=== PATIENT | male | born 1955 | race Caucasian/White ===

== ENCOUNTER → 2023-08-14 15:38 | Outpatient (REF) | payer MEDICARE, SELFPAY | LOC: HWRAD 15:38 | PROVIDERS: ATTENDING PHYSICIAN Internal Medicine Critical Care Medicine; FAMILY PHYSICIAN Family Medicine | DX: R91.1 Solitary pulmonary nodule (principal) | CPT/HCPCS: 71250 ==

== ENCOUNTER → 2023-11-27 15:25 | Outpatient (REF) | payer MEDICARE, SELFPAY | LOC: RAD 15:25 | PROVIDERS: ATTENDING PHYSICIAN Internal Medicine Critical Care Medicine; FAMILY PHYSICIAN Family Medicine | DX: Z86.718 Personal history of other venous thrombosis and embolism (principal); I26.99 Other pulmonary embolism without acute cor pulmonale | CPT/HCPCS: 93970 ==

== ENCOUNTER → 2023-12-04 10:51 | Outpatient (REF) | payer MEDICARE, SELFPAY | LOC: RAD 10:51 | PROVIDERS: ATTENDING PHYSICIAN Internal Medicine Critical Care Medicine; FAMILY PHYSICIAN Family Medicine | DX: R91.1 Solitary pulmonary nodule (principal) | CPT/HCPCS: 71250 ==

== ENCOUNTER 2025-01-12 21:35 | Inpatient (IN) | payer MEDICARE, SELFPAY ==
[2025-01-12] VITALS (11 sets, daily range): BP systolic 139–181; BP diastolic 84–126; BMI 20.4
[2025-01-12] MEDS: MORPHINE SULFATE 4 MG IV (18:41)
[2025-01-12 18:52] LABS: Hematocrit 51.5 % (39.0-52.0); Hemoglobin 17.5 g/dL (13.0-18.0); Mean Corp Hgb Conc. 34.0 g/dL (33.0-37.0); Mean Corpuscular Volume 93.1 fL (80.0-94.0); Nucleated Red Blood Cells % 0 % (-); Platelet Count 154 10^3/uL (130-400); Red Cell Dist. Width 15.5 % (11.5-14.5)
[2025-01-12 19:01] LABS: APTT 23.8 Sec (23.4-35.0); INR 0.89; PT 12.6 Sec (11.4-14.6)
[2025-01-12 19:11] LABS: ALT (SGPT) 70 U/L (0-50); AST (SGOT) 61 U/L (17-59); Albumin 4.9 g/dl (3.5-5.0); Alkaline Phosphatase 99 U/L (38-126); Blood Urea Nitrogen 11 mg/dl (9-20); Calcium 9.1 mg/dl (8.4-10.2); Carbon Dioxide 27 mmol/L (22-30); Chloride 102 mmol/L (98-107); Glucose 104 mg/dl (70-99); Potassium 4.7 mmol/L (3.5-5.1); Sodium 140 mmol/L (135-145); Total Protein 9.2 g/dl (6.3-8.2); eGFR > 60.00
--- NOTE | 2025-01-12 19:44 | ED.GENMED ---
History of Present Illness
General
Chief Complaint: Musculo-Skeletal Complaint
Time Seen by Provider: 01/12/25 18:23
History of Present Illness
History of Present Illness:
69-year-old male with history of chronic venous insufficiency, PE and DVT, HIV presenting for right lower extremity pain and discoloration. Patient reports that he started to have right lower extremity pain yesterday, and then today noticed bluish
discoloration to the foot. Patient admits to medication noncompliance. He is supposed to be on Eliquis and HIV medications, however has not been taking them for several months. Notes that he has had chronic venous stasis ulcers in the past.
Denies chest pain or difficulty breathing. Does note decreased sensation to the foot. He does not routinely follow with any vascular doctors. Denies additional acute medical complaints
Past History
Past History
ED Past Medical History: Other (Significant PVD/vascular insufficiency) and Other (HIV. Patient has what he calls severe OCD, he has stopped his HIV medications in December 2022 as he could not handle ordering all the meds and figuring out the prices
etc.)
Social History
Tobacco: Smoker
Alcohol: Daily
Living: with roommate
Phy Exam
Physical Exam
Physical Exam:
General: Well-appearing, no clinical signs of dehydration, nontoxic and in no acute distress
HEENT: protecting airway
Neck: appears supple
CV: Normal heart rate, regular rhythm
Resp: No accessory muscle use, no increased work of breathing, lungs clear to auscultation bilaterally
Abd: No distention
Extremities: No significant swelling to the right lower extremity, however significant cyanosis at the foot and ankle, extending proximally. No palpable distal pulses. Palpable femoral pulse. Decree sensation. Slight coolness to touch in
comparison to the left
Neuro: alert, no focal neurologic deficit
: deferred
Rectal: deferred
Psych: Normal affect
Skin: Intact
Course
Orders/Labs/Results
Orders:
Orders
01/12/25 18:34
CT Abd Aorta Angio W/ Run Off Urgent
Comment:
Reason For Exam: Pulseless RLE
Morphine Sulfate 4 mg IV NOW STA
01/12/25 18:42
Complete Blood Count/With Diff Urgent
Comprehensive Metabolic Panel Urgent
PTT Urgent
Prothrombin Time Urgent
01/12/25 19:23
Fentanyl Citrate/Pf [Sublimaze] 25 mcg IV [id number] PRN
HYDROmorphone [Dilaudid] 0.25 mg IV [id number] PRN
HYDROmorphone [Dilaudid] 0.5 mg IV [id number] PRN
Ondansetron Injectable [Zofran] 4 mg IV PACU-ONCEPRN PRN
Prochlorperazine [Compazine] 5 mg IV PACU-ONCEPRN PRN
Notify MD As Directed
Notify physician if: for SDS patients with known or suspected sleep obstructive sleep apnea, monitor in the
PACU.
Notify MD for any apneic/desaturation episodes
O2 Therapy [RESP] Urgent
Titrate/Wean O2 to maintain O2 sat greater than (%): 92
Special Instructions: -Provide supplemental oxygen to achieve O2 sat of 92% or greater.
-After 15 min, may wean O2 and discontinue if patient is able to maintain O2 sat of 92%
or greater during recovery period.
If patient is a discharge home, without oxygen therapy, notify anestheiologist if
unable to maintain O2 SAT of 92% or greater on room air for MD clearance.
01/12/25 19:30
Normosol (Mult Electrolytes) [Normosol-R/Plasmalyte-A] 1,000 ml IV PER PROTOCOL
01/12/25 19:43
Heparin 5,000 units .ROUTE .STK-MED ONE
Thrombin Topical (Bovine) [Thrombin-Jmi 20158 Unit Vial] 20,000 units .ROUTE .STK-MED ONE
01/12/25 19:51
Dexamethasone Sod Phosphate [Decadron] 20 mg .ROUTE .STK-MED ONE
Fentanyl Citrate/Pf [Sublimaze] 100 mcg .ROUTE .STK-MED ONE
Lidocaine HCl/Pf [Xylocaine-Mpf 1% Vial] 50 mg .ROUTE .STK-MED ONE
Midazolam HCl [Versed] 2 mg .ROUTE .STK-MED ONE
Ondansetron Injectable [Zofran] 4 mg .ROUTE .STK-MED ONE
Propofol [Diprivan] 20 ml .ROUTE .STK-MED
Rocuronium Eagle [Rocuronium] 50 mg .ROUTE .STK-MED ONE
01/12/25 20:10
Admit/Transfer Patient As Directed
Co-Sign Provider:
Level of Care: Inpatient admission
Assign to:: IVU
Physician / Group: Cleo
Diagnosis: Occlusion of the right superficial femoral artery
Reason for Hospitalization: arterial occlusion
Expected length of stay greater than two midnights?: Yes
ELOS- Estimated Length of Stay in days: 2
I certify the patient meets the requirements for IP care: Yes
01/12/25 20:11
PRN Pain Medication Management As Directed
May give lesser potent ordered pain med per pt: Yes
preference::
Protocol:: Medication orders for pain may be administered in a
manner that supports deferring to patient preference
when the pt is:
- Requesting an ordered lesser potent pain medication.
Least to most potent pain medications are defined
as: acetaminophen < NSAID < tramadol < opioids
(morphine, oxycodone, hydromorphone).
- Requesting a lesser dose of the same medication IF
ORDERED.
- Requesting a less intrusive route of administration
if both routes are prescribed by the provider (PO <
IV).
01/12/25 20:12
Code Status As Directed
Resuscitation Status: Full Code
Abnormal Lab Results
01/12/25
18:42
MCH 31.6 H pg
(27.0-31.0)
RDW 15.5 H %
(11.5-14.5)
MPV 10.9 H fL
(7.4-10.4)
Glucose 104 H mg/dl
(70-99)
AST 61 H U/L
(17-59)
ALT 70 H U/L
(0-50)
Total Protein 9.2 H g/dl
(6.3-8.2)
01/12/25 18:42
01/12/25 18:42
Vital Signs
Initial and Last Documented VS:
Initial Vital Signs
Temp Pulse Resp BP Pulse Ox
98.6 F 118 20 157/105 95
01/12/25 18:16 01/12/25 18:16 01/12/25 18:16 01/12/25 18:16 01/12/25 18:16
Last Documented Vital Signs
Temp Pulse Resp BP Pulse Ox
98.4 F 103 16 159/96 95
01/12/25 19:18 01/12/25 19:18 01/12/25 19:18 01/12/25 19:18 01/12/25 19:52
MDM/Problems Addressed
MDM/Problems Addressed:
69-year-old male with history of chronic venous insufficiency and medication noncompliance presenting for right lower extremity pain with discoloration. Vital signs on arrival significant for hypertension and tachycardia.
On exam, patient with grossly abnormal right lower extremity, cyanotic, no dopplerable pulses and decreased sensation. Concern for limb threatening occlusion. Call placed immediately to vascular surgery, recommending CT with runoff. Decision made
to send to CT without laboratory analysis critical concern.
19:05 -vascular surgery made aware of CT being done. Will interpreted images.
19:30 - Vascular notes they are coming in for operative repair of an SFA occlusion.
*Pulse Oximetry
SaO2: 95
Oxygen Mode of Delivery: Room air
Patient hypoxic: no
*Critical Care Note
Total Time (30-74mins, 75-104mins- exclusive of procedures): 45
comment:
The high probability of a clinically significant, sudden or life threatening deterioration of the vascular system(s) required my full and direct attention, intervention and personal management. The aggregate critical care time was [] minutes. This
time is in addition to time spent performing reported procedures but includes the following:
[x] Data Review and interpretation
[x] Patient assessment and monitoring of vital signs
[x] Documentation
[x] Medication orders and management
ED Attending Note
-
Portions of this chart may have been created with voice recognition software.� Occasional wrong word or��sound alike� substitutions may have occurred due to the inherent limitations of voice recognition software.
Discharge Plan
Departure
Patient Disposition: Admit
Date of Disposition: 01/12/25
Time of Disposition: 19:44
Presentation/result/management discussed w/ accepting MD/DO: Hospitalist
Patient with high blood pressure during this ER visit?: No
Condition: Critical
Discharge Problem:
Superficial femoral artery occlusion
Prescriptions:
No Action
Eliquis 5 mg Tablet
5 mg PO DAILY
Rx Instructions:
stopped a year ago
Trelegy Ellipta
1 inh inhalation DAILY
Rx Instructions:
He stopped all meds 1 year ago
Triumeq
1 tab PO DAILY
Rx Instructions:
stopped all meds since may
Referrals:
Ketan Iqbal MD [Family Provider, [facility]]
Interventions
Interventions:
*Risk Screen - Suicide Last Done: 01/12/25 18:16
*General Assessment Last Done: 01/12/25 18:16
*Neglect/Abuse Screening Last Done: 01/12/25 19:22
*ED- Fall Risk Assessment Last Done: 01/12/25 19:22
*ED COVID-19 Vaccine History Last Done: 01/12/25 19:22
*Nursing Disposition Last Done: 01/12/25 20:23
ED-Musculoskeletal Assessment Last Done: 01/12/25 19:29
Discharge Date and Time
Discharge Date/Time: 01/12/25 20:24
Print Language: SLOVAK
--- NOTE | 2025-01-12 19:51 | HPS.HSE ---
Family Physician
-
Family Physician: Ketan Iqbal
Chief Complaint
-
RLE pain
History of Present Illness
This is a 69-year-old with past medical history significant for venous thromboembolism, OCD, history of PE and HIV, noncompliant with medications presenting to the emergency department with right lower extremity tenderness and pain.
Patient reported that his pain started the previous evening with throbbing sensation in the right lower extremity. By time he arrived this morning he has bluish discoloration to his right lower extremity. He denied any prior episodes. Patient
reports that he has been noncompliant with his medications including his apixaban since May. He also has not been his HIV medications. He blames this noncompliance on OCD, dosage changes and timing changes.
In the Emergency Department patient had a blood pressure of 159/96, pulse rate of 103 was satting 98% on room air.
CBC unremarkable. Electrolytes BUN and creatinine all within the normal range.
CT A/P with contrast:
IMPRESSION:
1. There is complete occlusion of the distal right superficial femoral artery without definite reconstitution.
2. The arteries of the left leg appear patent with multifocal stenosis as detailed above. There is likely three-vessel runoff at the level of the ankle.
3. Moderate mixed density atherosclerotic plaque of the visualized abdominal aorta.
4. Prominent rectal stool burden, likely in the setting of constipation.
Medical History
Past Medical History
Past Medical History: Reports Other (ignificant PVD/vascular insufficiency) and Other (HIV. Patient has what he calls severe OCD, he has stopped his HIV medications in December 2022 as he could not handle ordering all the meds and figuring out the
prices etc.) Social History)
Past Surgical History: Reports None
Social History
Tobacco: Smoker
Alcohol: Daily
Family History
Family History: Not pertinent
Allergies / Home Medications
Allergies reflects when Allergies were last updated in [employer].
Home Medications with original date entered in [employer]
Allergy/Medication List:
Allergies
Allergy/AdvReac Type Severity Reaction Status Date / Time
No Known Allergies Allergy Unverified 06/05/23 15:37
Not on any meds
Review of Systems
-
Constitutional: Reports No Symptoms
EENT: Reports No Symptoms
Respiratory: Reports No Symptoms
Cardiac: Reports No Symptoms
Abdomen/GI: Reports No Symptoms
: Reports No Symptoms
Musculoskeletal: Reports See HPI
Skin: Reports No Symptoms
Neurological: Reports No Symptoms
Endocrine: Reports No Symptoms
Hematologic/Lymphatic: Reports No Symptoms
Psych: Reports No Symptoms
Physical Exam
Vital Signs
Vital Signs
Temp Pulse Resp BP Pulse Ox
98.4 F 103 16 159/96 95
01/12/25 19:18 01/12/25 19:18 01/12/25 19:18 01/12/25 19:18 01/12/25 19:29
Physical Exam
General: Other
HEENT: NormoCephalic, Moist mucous membranes and Atraumatic
Respiratory: Clear
Cardiac: S1/S2 and Regular Rhythm; No Murmur or Rub
GI: Soft, Non Tender, Non Distended and Normal Bowel Sounds; No Organomegaly
Rectal: Deferred by Provider
Musculoskeletal: No Clubbing, Cyanosis (Cyanosis in the right lower extremity, cool to touch, no palpable pulses at the dorsalis pedis) and No Edema
Skin: Rash (see msk above)
Neuro: AO x 3 and Nonfocal/grossly intact
Psych: Anxious
Laboratory Results
-
01/12/25 18:42
01/12/25 18:42
Laboratory Results
PT 12.6 Sec (11.4-14.6) 01/12/25 18:42
INR 0.89 01/12/25 18:42
APTT 23.8 Sec (23.4-35.0) 01/12/25 18:42
Total Bilirubin 0.8 mg/dl (0.2-1.3) 01/12/25 18:42
AST 61 U/L (17-59) H 01/12/25 18:42
ALT 70 U/L (0-50) H 01/12/25 18:42
Alkaline Phosphatase 99 U/L (38-126) 01/12/25 18:42
Data Reviewed
-
CT Scan: Report Reviewed by me
Lab Data: Labs Reviewed by me
Old Records: Reviewed
Impression/Plan
-
IMPRESSION:
69-year-old with history of HIV, PE and DVT, noncompliant with anticoagulation of HIV medications presenting to the emergency department with pain and discoloration of the right lower extremity found to have complete occlusion of the distal
superficial femoral artery. Critical stenosis requiring immediate intervention. Patient is taken to the Electronic [facility] by vascular surgery.
PLAN:
1. 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
- admit to IVU
- AC with heparin recommended, likely to be started in laborer cement gun placing
- proceed to laborer cement gun placing per vascular
- likely thrombotic phenomenon rather than athereosclerotic plaque, asa per vascular
- check lipid panel
- restart eliquis when appropriate
- vascular consulted ]
2. HIV -
patient on triumeq daily, non compliant. Can restart with follow up ID consultation
PT eval
DVT PPX - AC per vascular
Code status - Full Code
--- NOTE | 2025-01-12 20:04 | W.PN.VS ---
Today's Communication / Plan
-
operating room
Assessment/Plan
-
Ischemic right leg
CTA reviewed
will plan for open thrombectomy and possible bypass
discussed with patient
high risk for limb loss or permanent dysfunction given duration of ischemia
Subjective Data
-
Date of Service: January 12, 2025
asked to eval patient for ischemic right leg
pain started 24 hours ago
progressed today
discolored
decreased motor
severe pain
history of pe and dvt
stopped all meds (including hiv meds)
Objective Data
-
Vital Signs
Temp Pulse Resp BP Pulse Ox
98.4 F 103 16 159/96 95
01/12/25 19:18 01/12/25 19:18 01/12/25 19:18 01/12/25 19:18 01/12/25 19:52
Intake and Output
01/11/25 01/12/25 01/13/25
06:59 06:59 06:59
Output Total 200 / 200
Balance -200 / -200
Output:
Urine, Voided 200 / 200
Lab Results
01/12/25 18:42
01/12/25 18:42
Calcium 9.1 mg/dl (8.4-10.2) 01/12/25 18:42
Total Bilirubin 0.8 mg/dl (0.2-1.3) 01/12/25 18:42
AST 61 U/L (17-59) H 01/12/25 18:42
ALT 70 U/L (0-50) H 01/12/25 18:42
Alkaline Phosphatase 99 U/L (38-126) 01/12/25 18:42
Total Protein 9.2 g/dl (6.3-8.2) H 01/12/25 18:42
Albumin 4.9 g/dl (3.5-5.0) 01/12/25 18:42
Physical Exam
-
+ fem pulse
no distal pulses in right foot
left DP pulse 1+
blue mottled right foot
cool to touch
painful to palpation
--- NOTE | 2025-01-12 20:07 | W.SUR.PREOP ---
Pre-Operative Surgical Note
-
I have examined this patient prior to the performance of the scheduled procedure.
The patient's condition is unchanged from the time of the current History and
Physical and the patient is able to undergo the scheduled procedure.
--- NOTE | 2025-01-12 21:50 | W.IMMPOSTOP ---
Surgical Immed Post Op Note
-
Primary Surgeon: woo
Assisting Surgeon: none
Pre-op Diagnosis: ischemic right foot
Post-op Diagnosis: same
Procedure Performed: right femoral, popliteal, at, pt, peroneal artery thrombectomy
4 compartment fasciotomy
Anesthesia Type: GET
Specimen / Cultures: thrombus
Estimated Blood Loss: 50 ml
Complications: none
Operative Findings: + AT and PT signals, pink foot
[2025-01-12] MEDS: DILAUDID 0.5 MG IV ×2 (22:24→22:38)
[2025-01-12] MEDS: HEPARIN 25000 UNITS/250 ML IV (22:30)
[2025-01-12 23:35] LABS: Glucose - Point of Care 94 mg/dl (70-99)
[2025-01-12] MEDS: ROXICODONE 5 MG PO (23:49)
[2025-01-12] MEDS: NSS 1000 IV (23:49)
[2025-01-13] VITALS (26 sets, daily range): BP systolic 121–173; BP diastolic 64–115; BMI 19.6
[2025-01-13 04:55] LABS: Hematocrit 49.0 % (39.0-52.0); Hemoglobin 16.0 g/dL (13.0-18.0); Mean Corp Hgb Conc. 32.7 g/dL (33.0-37.0); Mean Corpuscular Volume 94.8 fL (80.0-94.0); Platelet Count 127 10^3/uL (130-400); Red Cell Dist. Width 15.9 % (11.5-14.5)
[2025-01-13 05:00] LABS: INR 0.99; PT 13.6 Sec (11.4-14.6)
[2025-01-13 05:02] LABS: APTT 101.9 Sec (23.4-35.0)
[2025-01-13 05:11] LABS: ALT (SGPT) 60 U/L (0-50); AST (SGOT) 67 U/L (17-59); Albumin 3.8 g/dl (3.5-5.0); Alkaline Phosphatase 84 U/L (38-126); Blood Urea Nitrogen 12 mg/dl (9-20); Calcium 8.2 mg/dl (8.4-10.2); Carbon Dioxide 24 mmol/L (22-30); Chloride 107 mmol/L (98-107); Estimated Creatinine Clearance 117 ml/min; Glucose 106 mg/dl (70-99); Potassium 4.9 mmol/L (3.5-5.1); Sodium 138 mmol/L (135-145); Total Protein 7.6 g/dl (6.3-8.2); eGFR > 60.00
[2025-01-13 05:27] LABS: Magnesium 1.9 mg/dl (1.6-2.3)
[2025-01-13] MEDS: NSS 1000 IV ×3 (06:01→23:43)
--- NOTE | 2025-01-13 06:35 | PTCARENOTE ---
Late entry: Pt arrived from PACU to ICU room 3364 at approx 2300. Neurovascular assessment to RLE done in tandem with FORESTRY INSTRUCTOR, + doppler signals for right PT and DP, RLE warm, vivian, toes are deep red/purple. Received pt on Heparin drip at 1300
units/hr, repeat PTT was therapeutic and next PTT for 1030. Pt reporting pain to RLE, medicated with Oxycodone x1 this shift (see EMAR). Neurovascular assessments ongoing Q1hr. Admission database completed. SR 80s on monitor with BBB and PVCs/PACs.
See nursing shift assessment flowsheet for full physical assessment details. Pt slept most of the shift after receiving pain medication.
--- NOTE | 2025-01-13 07:14 | CON.INTV ---
Consultation
Consultation Request
Date/Time Consultation Requested: 01/12/2025
Date/Time Consultation Performed: 01/13/2025
Medical History
-
Chief Complaint: Limb pain
History of Present Illness:
Patient is a 69-year-old gentleman with prior history of DVT and PE and, HIV who presented to the emergency room with right lower extremity pain. In the emergency room patient's limb was noted to be cyanotic. Reportedly patient not taking his
Eliquis since about 7 months now. He was hemodynamically stable and had a CT angiogram performed which showed a complete occlusion of the distal right superficial femoral artery without definitive reconstitution. Vascular surgery service was
consulted and patient was emergently taken to the OR where he had thrombectomy performed along with 4 compartment fasciotomy. Patient was subsequently admitted to the ICU and production ski repairer service was consulted for further input.
Past Medical History
Past Medical History: Reports Other (significant PVD/vascular insufficiency) and Other (HIV. Patient has what he calls severe OCD, he has stopped his HIV medications in December 2022 as he could not handle ordering all the meds and figuring out the
prices etc.) Social History)
Past Surgical History: Reports None
Social History
Tobacco: Smoker
Alcohol: Daily
Family History
Family History: Not pertinent
Allergies / Home Medications
Allergies / Home Medications
Allergies
Allergy/AdvReac Type Severity Reaction Status Date / Time
No Known Allergies Allergy Unverified 06/05/23 15:37
Home Medications
�Medication �Instructions �Recorded �Confirmed �Last Taken �Type
Trelegy Ellipta 1 inh inhalation DAILY 01/12/25 01/12/25 Unknown History
Triumeq 1 tab PO DAILY 01/12/25 01/12/25 Unknown History
apixaban 5 mg tablet (Eliquis) 5 mg PO DAILY 01/12/25 01/12/25 Unknown History
Review of Systems
-
Hematologic/Lymphatic: Other (All 14 systems reviewed and negative except as stated above in the history of present illness.)
Vitals / Labs / Diagnostic Testing
Vital Signs
Temp Pulse Resp BP Pulse Ox
98 F 85 13 152/88 98
01/13/25 03:38 01/13/25 06:00 01/13/25 06:00 01/13/25 06:00 01/13/25 06:00
Lab Data
01/13/25 04:32
01/13/25 04:32
Laboratory Results
01/12/25 01/13/25 01/13/25
18:42 00:05 04:32
PT 12.6 13.6
INR 0.89 0.99
APTT 23.8 Cancelled 101.9 H
Diagnostic Testing:
Physical Exam
-
HEENT: Normocephalic
Cardiovascular: S1/S2 and Peripheral Edema
Respiratory: Clear
GI: Soft and Non Distended
Neurology: Awake and Alert
Skin: Warm
General: Comfortable
Assessment
-
69-year-old gentleman presented with acute limb ischemia and emergently taken to the OR on 01/12, s/p Right femoral, popliteal, AT, PT, Peroneal artery thrombectomy with 4 compartment fasciotomy by vascular surgery service, POD #1
Continue observation following procedure
Follow neurovascular checks per protocol
Continue heparin infusion per vascular surgery service, also on normal saline infusion
Follow BP monitoring and parameters as set by primary team
No pertinent cardiac history
Monitor on telemetry
Pain control per protocol
RASS goal 0
No prior history of pulmonary disease, smoking hx includes
CXR reviewed:
No prior PFTs for review
Encouraged IS
Diet advancement per protocol
Aspiration precautions
GI prophylaxis: Protonix
Creat at baseline, follow UO
Critical I/Os
Void trials
Replete electrolytes as needed
No signs/symptoms suspicious for infectious etiology at this time
Will observe off antibiotics for now
Follow temperatures/CBC
Hb and platelets postoperatively stable
DVT prophylaxis: Currently on heparin infusion
Other medical diagnoses:
- Pulmonary nodules. Stable findings on f/u CT Chest in 11/2023. Needs on going surveillance imaging as outpatient. Follows up with Dr. Boucher at [facility]. Resume as out patient.
- H/o HIV. Patient not compliant with HIV medications
- H/o DVT and PE. Patient has more than 1 episodes of VTE events and was supposed to be on Eliquis lifelong but has not been taking any for close to 6-7 months now.
- OCD
- History of smoking with Centrilobular emphysema. Reportedly had been on Trelegy in the past, not taking lately. Will add PRN Albuterol for now.
Critical Care time 55 mins -- The patient is admitted for acute critical illness for the treatment of vital organ failure and/or prevention of further life-threatening conditions. Total care includes time spent in review of history, physical exam,
medications, hemodynamic/ventilator parameters, laboratory data, imaging and discussion with house staff, pharmacy, respiratory therapy, core dipper, and nursing.
Data:
CTA Abd/Pelvis 12/2024: 1. There is complete occlusion of the distal right superficial femoral artery without definite reconstitution.
2. The arteries of the left leg appear patent with multifocal stenosis as detailed above. There is likely three-vessel runoff at the level of the ankle.
3. Moderate mixed density atherosclerotic plaque of the visualized abdominal aorta.
4. Prominent rectal stool burden, likely in the setting of constipation.
CT Chest 11/2023: Interval stability as well as some improvement.
Slightly improved mild bronchial wall thickening. Previous left apical parenchymal process has resolved.
Stable findings include irregular nodular opacities in the right upper lobe and apex, and medial left apex. Also stable is small focal subtle opacity in the medial right upper lobe and lobular septated cystic structure centrally situated in the
right midlung zone.
No new mass or consolidation.
ECHO 05/2023: Normal left ventricular size with low normal/mildly reduced LV systolic function
Left ventricular ejection fraction visually estimated 45-50%
Dilated right ventricle with perhaps low normal RV systolic function
Thickened mitral valve leaflets with trace mitral regurgitation
Aortic valve morphology poorly visualized. Sclerotic without stenosis or regurgitation
Estimated pulmonary artery pressure of 22 mmHg, assuming a right atrial
pressure of 3 mmHg.
No pericardial effusion
No prior for comparison
[2025-01-13] MEDS: COLACE 100 MG PO (09:01)
[2025-01-13] MEDS: PROTONIX 40 MG PO (09:01)
[2025-01-13] MEDS: ROXICODONE 5 MG PO ×2 (09:05→23:43)
[2025-01-13 10:45] LABS: APTT 85.7 Sec (23.4-35.0)
--- NOTE | 2025-01-13 11:30 | CM ---
Initial assessment completed with patient who lives with his partner in a 2 story home plus basement with B/B on 2nd, no bath on 1st, 1 step to enter. 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
Patient furniture surfs when ambulating. He does have a RW and a walking stick. He does not use the RW. He does not drive. No in-home services. No service. No HC-POA. Patient reports that he had stopped taking all his medications
approximately 1 year ago. He has severe OCD and was overwhelmed with ordering the meds, too many pill bottles and having to determine which pills to take at what time. Dr. Macedo discussed the importance of taking the medications. He also offered
suggestions to better manage ie: Ask the pharmacy to bottle the meds, have his partner assist, etc. Patient continued to say he was not going to take any pills at home. PCP is Dr. Ketan Iqbal. Pharmacy is [facility] in [place]. Discharge POC: TBD
after surgery.
[2025-01-13] MEDS: DILAUDID 0.5 MG IV ×2 (11:59→15:31)
[2025-01-13 12:33] LABS: Glycohemoglobin (HgbA1c) 5.2 % (4.0-5.6)
--- NOTE | 2025-01-13 12:36 | PTCARENOTE ---
OOB to bedside commode with 2 assist and walker. Pt reported increased pain with movement. PRN Dilaudid given. O2 weaned off. 94% on room air. Pt reported SOB with transfer therefore 2L NC reapplied. Small amount of bleeding from right lower
extremity medial incision. + right DP and PT pulses via doppler. All other assessments unchanged. Tolerated clear liquid diet for breakfast. Diet advanced and eating lunch at this time.
--- NOTE | 2025-01-13 13:07 | W.PN.HOSP.TC ---
Today's Communication/Plan
-
Monitor vital signs see plan
Continue with heparin drip
Vascular surgery following
PT evaluation when okay with vascular surgery
Continue with vascular checks
Assessment / Plan
Assessment / Plan
General: No acute distress
HEENT: NormoCephalic, Moist mucous membranes and Atraumatic
Respiratory: Clear
Cardiac: S1/S2 and Regular Rhythm
GI: Soft, Non Tender, Non Distended and Normal Bowel Sounds
Rectal: Deferred by Provider
Musculoskeletal: RLE bandage
Neuro: AO x 3 and Nonfocal/grossly intact
Psych: Anxious
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
s/p s/p Right femoral, popliteal, AT, PT, Peroneal artery thrombectomy with 4 compartment fasciotomy 01/12. cw hep gtt per vascular
Monitor in ICU per vascular
Not compliant to Eliquis and stopped a year ago
History of PE and DVT
Vascular surgery follow
History of HIV, noncompliant with medications
patient on triumeq daily, non compliant. Can restart with follow up ID consultation
Patient calls his severe OCD that made him stop all his medication
Right bundle branch block
History of pernicious anemia
Elevated LFTs
Continue to monitor
PT eval when okay with vascular
DVT PPX - hep gtt
Code status - Full Code
Anticipated Discharge: > 48 hours
Subjective/Interval History
-
Date of Service: January 13, 2025
Denies nausea
Objective Data
-
Labs:
Laboratory Results
01/13/25 01/13/25
04:32 10:14
WBC 5.9
Hgb 16.0
Hct 49.0
Plt Count 127 L
PT 13.6
INR 0.99
APTT 101.9 H 85.7 H
Sodium 138
Potassium 4.9
Chloride 107
Carbon Dioxide 24
BUN 12
Creatinine 0.6 L
Glucose 106 H
Calcium 8.2 L
Total Bilirubin 0.6
AST 67 H
ALT 60 H
Alkaline Phosphatase 84
Vital Signs:
Vital Signs
Temp Pulse Resp BP Pulse Ox
98.2 F 92 16 125/88 94
01/13/25 08:03 01/13/25 11:36 01/13/25 11:36 01/13/25 11:01 01/13/25 11:36
I&O
01/12/25 01/13/25 01/14/25
06:59 06:59 06:59
Intake Total 1304 / 1442 1040 / 1040
Output Total 1630 / 1700 210 / 210
Balance -326 / -258 830 / 830
[2025-01-13] MEDS: HEPARIN 25000 UNITS/250 ML IV (14:44)
--- NOTE | 2025-01-13 15:36 | W.PN.UPDATE ---
Update Note
Progress Note Update
Called to bedside due to c/f worsening pain & RN unable to find pulses in RLE. Received TT and arrived at bedside immediately.
Evaluated pt - reported worsening pain in RLE, levels increasing to similar as on admission. R foot with mottled discoloration, toes purple. Team notes this is not significant change in appearance. Pt able to move R toes and move R ankle minimally.
NAZARIO bandage taken down from leg, gauze left in place. R dorsalis pedis and posterior tibial pulses were not appreciable on doppler US at bedside; scanned at previously-marked regions that had strong pulses earlier in day.
Plan:
- Pt made NPO
- Ordered stat CTA abd/pelvis with runoff
- Continue PRN pain mgmt, next dose dilaudid
- Attending aware & agrees with plan.
--- NOTE | 2025-01-13 15:39 | PTCARENOTE ---
Unable to find right pedal pulses via doppler. Foot slightly cooler than prior. Toes appear more purple. Vascular surgery SOLAR CONSULTANT notified and came to bedside to assess.
--- NOTE | 2025-01-13 16:30 | PTCARENOTE ---
Back from CT. Foot warmer. Color improved. Right PT and AT pulse via doppler.
All other assessments unchanged.
--- NOTE | 2025-01-13 16:46 | W.PN.UPDATE ---
Update Note
Progress Note Update
CTA reviewed w attending. Doppler US re-checked at bedside. Pulses appreciable up to mid-foot on R side. Corroborated by CTA. Plan for OR today.
[2025-01-13] MEDS: COLACE PO (20:17)
--- NOTE | 2025-01-13 20:17 | PTCARENOTE ---
Addendum entered by Annabelle Allen RN 01/13/25 20:20:
Heparin placed on hold by OR nurse before pt left for OR.
Original Note:
Pt left for OR at this time.
--- NOTE | 2025-01-13 20:17 | PTCARENOTE ---
Assumed care of pt at 1900. Pt is A/O x4. Neurovascular checks to RLE ongoing Q1 hour and done in tandem with offgoing RN at 1900, pt to go back to OR for additional vascular surgery this evening. Heparin drip infusing at 1300 units/hr. SR on
monitor with HR in 80s-90s. Pt is 97% on 2LNC, O2 turned off and pt 92% on RA (lungs diminished with insp/exp wheezing). See nursing shift assessment flowsheet for full physical assessment details.
--- NOTE | 2025-01-13 20:33 | W.PN.UPDATE ---
Update Note
Progress Note Update
Patient was seen and examined earlier this morning. At that time had no complaints. Doppler signals were intact in the right foot. Fasciotomy dressings were changed. This afternoon he began complaining of worsening right foot pain and there was
a change in Doppler exam. CT angiogram was performed which I personally reviewed. The popliteal artery and proximal tibial arteries are patent. There appears to be cut off of the posterior tibial artery and dorsalis pedis artery which is
consistent with his Doppler exam findings. I am concerned that the worsening foot pain represents either ongoing or new ischemia. My recommendation is to return to the operating room for distal tibial/pedal thrombectomies of the anterior
tibial/dorsalis pedis and posterior tibial arteries. The technical aspects of this procedure were discussed with him in detail. The benefits and rationale for this approach were discussed with him in detail. Operative risks were discussed with
him in detail including but not limited to bleeding, heart attack, ongoing ischemia, need for return trips to the operating room and limb loss. He expressed a clear understanding of our conversation and agrees to proceed with surgery as detailed
above
Barak Gupta III, MD
Vascular Surgery
[facility]
[2025-01-13] MEDS: NSS IV (21:26)
--- NOTE | 2025-01-13 22:15 | OR.RPT ---
Operative Report
Operative Report
Date of Operation: 01/13/2025
Pre Op Diagnosis: Acute limb ischemia, right lower extremity
Post Op Diagnosis: Acute limb ischemia, right lower extremity
Procedure:
1. Cutdown and exposure of right posterior tibial artery at the ankle.
2. Thrombectomy of the posterior tibial artery
Surgeon: Barak Gupta III, MD
Bus Washer: Ja Raygoza MD PGY-6
Anesthesia: General
Complications: None
Estimated Blood Loss: 50 cc
History and Indications for Procedure: 69-year-old male who was taken to the operating room yesterday evening for acute limb ischemia of his right lower extremity and underwent thromboembolectomy along with 4 compartment fasciotomies. This
afternoon he complained of worsening pain in his right foot along with a change in his Doppler exam. CT angiography demonstrated patent tibial vessels proximally but no flow was identified into the foot. We could not obtain Doppler signals distal
to the ankle. After discussion with the patient and his partner the decision was made to return to the operating room for attempted thrombectomy from distal exposure at the ankle and re-establish flow to the foot.
Procedure in Detail: Ted Martinez was correctly identified and placed supine on the operating table. After adequate induction of anesthesia his right lower extremity and foot were prepped and draped in the usual sterile fashion. He received
preoperative antibiotics. A timeout procedure was performed with the nursing and anesthesia staff confirming the patient's identity as well as the nature and laterality of the procedure.
I started by making an incision to expose the posterior tibial artery at the ankle. This was done with an incision over the medial ankle extending posterior to the medial malleolus. Patient had significant venous disease at his ankle and
significant pressurized venous bleeding was encountered throughout the exposure. This was controlled with electrocautery and metal clips. With careful dissection the posterior tibial artery was exposed through this incision. A Doppler signal was
identified at the distal calf but no Doppler signal was present in the posterior tibial artery exposed at the ankle. There was no pulse in the artery. The artery was firm to palpation. Proximal and distal control was obtained with vessel loops.
The patient was systemically heparinized and had been on a therapeutic heparin drip in the ICU all day. A transverse arteriotomy was then made with an ophthalmic blade. There was no bleeding from the posterior tibial artery. A #2 Dimas balloon
was passed easily proximally. 3 separate sweeps were made with the #2 Dimas balloon. Pulsatile inflow was established but no thrombus was returned. The proximal artery was flushed with heparinized saline solution and the vessel loop resecured.
I then attempted to pass the Dimas balloon distally into the foot but was met with stiff resistance. I could not pass the Dimas balloon more than 1 to 2 cm into the distal artery and did not make any progress advancing this into the foot. I
exposed further distal along the posterior tibial artery and made another transverse arteriotomy hoping to make some progress from a more distal site to advance the Dimas into the foot. Once again I could not pass the Dimas catheter distally.
There was no backbleeding from the distal artery. I made an attempt to gently place forceps into the distal artery to see if I could remove any thrombus or other obstructing material but was unsuccessful. At this point I aborted additional
attempts. Both arteriotomies were closed with interrupted 7-0 Prolene sutures.
Hemostasis was achieved in the wound bed. The wound was irrigated with saline solution. The wound was then closed with interrupted nylon sutures. The fasciotomy wounds were irrigated with saline solution and repacked with saline moistened gauze.
The fasciotomy wounds were covered with dry gauze and an Av wrap.
The patient tolerated the procedure well and was taken to the recovery room in good condition.
Attestation: I was present and responsible for the entire procedure
Signed:
Barak Gupta III, MD
Vascular Surgery
[facility]
--- NOTE | 2025-01-13 22:30 | W.SUR.POST ---
Surgical Immediate Post Op
Note
Pre Op Diagnosis: Acute limb ischemia
Post Op Diagnosis:Acute limb ischemia
Procedure Performed: Dorsalis pedis cutdown, embolectomy.
Primary Surgeon: Barak Gupta III, MD
Secondary Surgeons: Ja Raygoza MD
Anesthesia: see anesthesia report
Estimated Blood Loss: 70 cc
Fluids: see anesthesia report
Drains/Shunts: N
Specimens/Cultures: N
Doppler/Duplex/Angio (Y/N): N
Complications: none
Operative Findings: Dorsalis pedis cutdown, embolectomy. Able to restore PT inflow, unable to pass ana catheter distally to PT.
--- NOTE | 2025-01-13 23:23 | PTCARENOTE ---
2235: Pt arrived as a direct-back from OR to room 3364. [address], 10L simple mask, SpO2 100%. Pt lethargic with snoring respiratioins. Neurovascular check done with OR staff in room, see neurovascular flowsheet for details. Pt with + doppler
signals to right AT, PT, and DP.
2243: Pt woke up spontaneously, OPA removed.
2250: Remains drowsy, maintaining SpO2 100% on simple mask, titrated O2 to 6LNC.
2253: Heparin drip restarted at 1300 units/hr (GEOSCIENTIST communicated in report that Dr. Gupta wanted it restarted when pt back in ICU at previous rate).
2311: O2 down to 4LNC. Pt drowsy but easily arouses to voice, oriented x4.
2322: O2 down to 2LNC
[2025-01-14] VITALS (29 sets, daily range): BP systolic 97–147; BP diastolic 58–84; BMI 20.6
--- NOTE | 2025-01-14 00:15 | PTCARENOTE ---
Midnight physical assessment unchanged. Still with faint insp/exp wheezing and diminished lung sounds. O2 now at 2LNC, maintaining SpO2 95%. Pt is alert, oriented, appropriate with conversation. Neurovascular assessment to RLE ongoing, see flowsheet
for full details. Heparin drip at 1300 units/hr. Gupta care done and linens changed under patient. RLE prema wrapped from knee to ankle, suture is visible at distal leg near ankle. Pt medicated for pain with PRN Oxycodone, see EMAR. Partner (Raheem) at
bedside, staying the night.
--- NOTE | 2025-01-14 01:29 | PTCARENOTE ---
Addendum entered by Annabelle Allen RN 01/14/25 02:12:
At 0200 check, + DP signal present again.
Original Note:
At 0100 neurovascular check, + doppler signals found in right AT and PT, but DP signal was absent--attempted for approx 5 min with two different dopplers but was unsuccessful in finding a DP signal. Foot appears the same--distal to where DP pulse
had been marked is still deep red/purple in color, cap refill >2 seconds, sensation unchanged. Pt reports that his pain is controlled after receiving oxycodone. Reynolds text sent to on-call vascular surgeon Dr. Salazar to make him aware of the
change, awaiting response. ICU PROPERTY INSURANCE AGENT Vanita Vann also aware.
--- NOTE | 2025-01-14 04:43 | PTCARENOTE ---
0400 assessment unchanged. Right AT, PT, DP signals intact, see neurovascular flowsheet for details. Remains on heparin drip. SR 70s on monitor, 97% on 2LNC.
[2025-01-14 04:46] LABS: Hematocrit 38.1 % (39.0-52.0); Hemoglobin 12.8 g/dL (13.0-18.0); Mean Corp Hgb Conc. 33.6 g/dL (33.0-37.0); Mean Corpuscular Volume 94.1 fL (80.0-94.0); Nucleated Red Blood Cells % 0 % (-); Platelet Count 106 10^3/uL (130-400); Red Cell Dist. Width 15.4 % (11.5-14.5)
[2025-01-14 04:50] LABS: APTT 72.9 Sec (23.4-35.0)
[2025-01-14] MEDS: HEPARIN 2900 UNITS IV (05:00)
[2025-01-14 05:09] LABS: ALT (SGPT) 36 U/L (0-50); AST (SGOT) 57 U/L (17-59); Albumin 2.9 g/dl (3.5-5.0); Alkaline Phosphatase 64 U/L (38-126); Blood Urea Nitrogen 13 mg/dl (9-20); Calcium 7.4 mg/dl (8.4-10.2); Carbon Dioxide 23 mmol/L (22-30); Chloride 107 mmol/L (98-107); Estimated Creatinine Clearance 118 ml/min; Glucose 157 mg/dl (70-99); Potassium 4.2 mmol/L (3.5-5.1); Sodium 133 mmol/L (135-145); Total Protein 6.0 g/dl (6.3-8.2); eGFR > 60.00
[2025-01-14] MEDS: NSS 1000 IV (06:19)
[2025-01-14] MEDS: COLACE 100 MG PO ×2 (07:58→20:53)
[2025-01-14] MEDS: TYLENOL 650 MG PO (07:58)
[2025-01-14] MEDS: PROTONIX 40 MG PO (07:59)
--- NOTE | 2025-01-14 08:18 | W.PN.VS ---
Today's Communication / Plan
-
Patient seen and examined at bedside with attending Dr. Salazar, below plan reviewed with attending.
Assessment/Plan
-
Assessment: 69-year-old male POD #2 Right femoral, popliteal, at, pt, peroneal artery thrombectomy and 4 compartment fasciotomy. POD #1 Cutdown and exposure of right posterior tibial artery at the ankle. Thrombectomy of the posterior tibial artery
for acute ischemia of right lower extremity
Plan:
Continue heparin infusion for anticoagulation
Continue neurovascular checks
Continue ICU level care today
Cardioembolic workup. Recommend cardiology consultation, will obtain echo and CT angio of chest
Subjective Data
-
Date of Service: January 14, 2025
Patient seen and examined at bedside, reports continued intermittent pain at right foot currently managed with ordered prn pain medication. Denies nausea, vomiting, fever, and chills.
Objective Data
-
Vital Signs
Temp Pulse Resp BP Pulse Ox
99.9 F 81 24 127/71 94
01/14/25 03:06 01/14/25 06:00 01/14/25 06:00 01/14/25 06:00 01/14/25 08:17
Intake and Output
01/13/25 01/14/25 01/15/25
06:59 06:59 06:59
Intake Total 1304 / 1442 3538.25 / 3917.25 638 / 638
Output Total 1630 / 1700 1600 / 1650 150 / 150
Balance -326 / -258 1938.25 / 2267.25 488 / 488
Intake:
Oral fluids 830 / 1070 360 / 360
IV fluids (Total) 1304 / 1442 2708.25 / 2847.25 278 / 278
Heparin 104 / 117 270.75 / 284.75 28 / 28
Nss 1,000 ml @ 125 mls/hr IV . 1000 / 1125 2437.5 / 2562.5 250 / 250
Q8H CLARE Rx#:[id number]
nss 200 / 200
Output:
Urine, Gupta 1430 / 1500 1600 / 1650 150 / 150
Urine, Voided 200 / 200
Lab Results
01/14/25 04:27
01/14/25 04:27
Calcium 7.4 mg/dl (8.4-10.2) L 01/14/25 04:27
Phosphorus 4.5 mg/dl (2.5-4.5) 01/13/25 04:32
Magnesium 1.9 mg/dl (1.6-2.3) 01/13/25 04:32
Total Bilirubin 0.4 mg/dl (0.2-1.3) 01/14/25 04:27
Direct Bilirubin 0.3 mg/dl (0.0-0.4) 01/13/25 04:32
AST 57 U/L (17-59) 01/14/25 04:27
ALT 36 U/L (0-50) 01/14/25 04:27
Alkaline Phosphatase 64 U/L (38-126) 01/14/25 04:27
Total Protein 6.0 g/dl (6.3-8.2) L D 01/14/25 04:27
Albumin 2.9 g/dl (3.5-5.0) L 01/14/25 04:27
Physical Exam
-
No apparent distress, resting bed comfortably
No tachycardia
No dyspnea
ABD, nontender, nondistended
Right foot remains with maroonish discoloration at digits, decreased motor function at right foot digits can dorsiflex and plantarflex at ankle, cap refill roughly 5 seconds, AT Doppler signal
Gupta draining clear yellow urine
--- NOTE | 2025-01-14 09:36 | PTCARENOTE ---
Updated assessment, vital signs and heparin drip trends as per icu/vascular protocols. Update with patient and family at bedside. Vascular team rounds, follow up vascular checks as ordered. Heparin protocol ongoing. Continue with hickey as per
surgery. Dressing changes with vascular team later today. Post dressing maintained. Continue supportive cares and teaching thru shift for patient and family.
[2025-01-14] MEDS: ROXICODONE 5 MG PO ×3 (09:55→22:13)
[2025-01-14] MEDS: HEPARIN 25000 UNITS/250 ML IV (10:53)
--- NOTE | 2025-01-14 10:54 | CM ---
Patient seen at bedside in ICU. Patient c/o of pain in jaw and growth under tongue. Patient nurse made aware. Patient pending medical treatment plan. CM will continue to follow for discharge planning needs.
Plan; TBD pending medical treatment plan
--- NOTE | 2025-01-14 11:22 | W.PN.UPDATE ---
Update Note
Progress Note Update
Lower extremity dressing changed by this provider, tolerated well. CDI.
[2025-01-14 11:29] LABS: APTT 73.1 Sec (23.4-35.0)
--- NOTE | 2025-01-14 12:32 | W.PN.INTV ---
Today's Communication / Plan
Recommendations
- Continue current management
Assessment
-
69-year-old gentleman presented with acute limb ischemia and emergently taken to the OR on 01/12, s/p Right femoral, popliteal, AT, PT, Peroneal artery thrombectomy with 4 compartment fasciotomy by vascular surgery service, POD #2
- Return to OR 01/13 for distal ischemia, s/p Dorsalis pedis cutdown, embolectomy. POD #1
Continue observation following procedure
Follow neurovascular checks per protocol
Continue heparin infusion per vascular surgery service
Follow BP monitoring and parameters as set by primary team
No pertinent cardiac history
Monitor on telemetry
Pain control per protocol
RASS goal 0
No prior history of pulmonary disease, smoking hx includes
CXR reviewed:
No prior PFTs for review
Encouraged IS
Diet advancement per protocol
Aspiration precautions
GI prophylaxis: Protonix
Creat at baseline, follow UO
Critical I/Os
Void trials
Replete electrolytes as needed
No signs/symptoms suspicious for infectious etiology at this time
Will observe off antibiotics for now
Follow temperatures/CBC
Hb and platelets postoperatively stable
DVT prophylaxis: Currently on heparin infusion
Other medical diagnoses:
- Pulmonary nodules. Stable findings on f/u CT Chest in 11/2023. Needs on going surveillance imaging as outpatient. Follows up with Dr. Boucher at [facility]. Resume as out patient.
- H/o HIV. Patient not compliant with HIV medications
- H/o DVT and PE. Patient has more than 1 episodes of VTE events and was supposed to be on Eliquis lifelong but has not been taking any for close to 6-7 months now.
- OCD
- History of smoking with Centrilobular emphysema. Reportedly had been on Trelegy in the past, not taking lately. Addded PRN Albuterol for now.
Critical Care time 36 mins -- The patient is admitted for acute critical illness for the treatment of vital organ failure and/or prevention of further life-threatening conditions. Total care includes time spent in review of history, physical exam,
medications, hemodynamic/ventilator parameters, laboratory data, imaging and discussion with house staff, pharmacy, respiratory therapy, pan dumper, and nursing.
Data:
CTA Abd/Pelvis 12/2024: 1. There is complete occlusion of the distal right superficial femoral artery without definite reconstitution.
2. The arteries of the left leg appear patent with multifocal stenosis as detailed above. There is likely three-vessel runoff at the level of the ankle.
3. Moderate mixed density atherosclerotic plaque of the visualized abdominal aorta.
4. Prominent rectal stool burden, likely in the setting of constipation.
CT Chest 11/2023: Interval stability as well as some improvement.
Slightly improved mild bronchial wall thickening. Previous left apical parenchymal process has resolved.
Stable findings include irregular nodular opacities in the right upper lobe and apex, and medial left apex. Also stable is small focal subtle opacity in the medial right upper lobe and lobular septated cystic structure centrally situated in the
right midlung zone.
No new mass or consolidation.
ECHO 05/2023: Normal left ventricular size with low normal/mildly reduced LV systolic function
Left ventricular ejection fraction visually estimated 45-50%
Dilated right ventricle with perhaps low normal RV systolic function
Thickened mitral valve leaflets with trace mitral regurgitation
Aortic valve morphology poorly visualized. Sclerotic without stenosis or regurgitation
Estimated pulmonary artery pressure of 22 mmHg, assuming a right atrial
pressure of 3 mmHg.
No pericardial effusion
No prior for comparison
Subjective Dataa
Subjective Data
Date of Service:
Date of Service: January 14, 2025
Subjective:
Patient comfortably lying in bed in no acute distress. Currently saturating 96% on room air, MAP around 74, not requiring any pressors.
Review of Systems
Genitourinary: Other (All 14 systems reviewed and negative except as stated above in the history of present illness.)
Objective Data
Data Reviewed
Vital Signs / I&O / Oxygen:
Vital Signs
Temp Pulse Resp BP Pulse Ox
98.8 F 79 24 108/59 94
01/14/25 08:19 01/14/25 11:00 01/14/25 11:00 01/14/25 11:00 01/14/25 11:14
Intake and Output
01/13/25 01/14/25 01/15/25
06:59 06:59 06:59
Intake Total 1304 / 1442 3538.25 / 3917.25 1350 / 1350
Output Total 1630 / 1700 1600 / 1650 450 / 450
Balance -326 / -258 1938.25 / 2267.25 900 / 900
SaO2 94
Nasal Cannula flow liters per 2
minute
Physical Exam
General: Comfortable
HEENT: Normocephalic
Cardiovascular: S1-S2
Respiratory: Clear and Wheeze (No obvious wheezing on exam)
GI: Soft
Neurology: Awake and Alert
Skin: Warm
Labs/Micro/Reports
Lab Data
01/14/25 04:27
01/14/25 04:27
Laboratory Results
01/14/25 01/14/25
04:27 11:10
APTT 72.9 H 73.1 H
--- NOTE | 2025-01-14 12:47 | W.PN.HOSP.TC ---
Today's Communication/Plan
-
Monitor vital signs
see plan
Monitor in ICU per vascular
Continue to do vasculature checks
CT angio per vascular
cw hep gtt
Assessment / Plan
Assessment / Plan
General: No acute distress
HEENT: NormoCephalic, Moist mucous membranes and Atraumatic
Respiratory: Clear
Cardiac: S1/S2 and Regular Rhythm
GI: Soft, Non Tender, Non Distended and Normal Bowel Sounds
Rectal: Deferred by Provider
Musculoskeletal: RLE bandage
Neuro: AO x 3 and Nonfocal/grossly intact
Psych: Anxious
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
s/p Right femoral, popliteal, AT, PT, Peroneal artery thrombectomy with 4 compartment fasciotomy 01/12. cw hep gtt per vascular
s/p Cutdown and exposure of right posterior tibial artery at the ankle. Thrombectomy of the posterior tibial artery for acute ischemia of right lower extremity
Monitor in ICU per vascular
Not compliant to Eliquis and stopped a year ago
History of PE and DVT
Vascular surgery following
Cardiology evaluation
Echo
cw vascular checks
History of HIV, noncompliant with medications
patient on triumeq daily, non compliant. Can restart with follow up ID consultation
Patient calls his severe OCD that made him stop all his medication
Right bundle branch block
History of pernicious anemia
Elevated LFTs
Continue to monitor
PT eval when okay with vascular
DVT PPX - hep gtt
Code status - Full Code
Anticipated Discharge: > 48 hours
Subjective/Interval History
-
Date of Service: January 14, 2025
has some pain
Objective Data
-
Labs:
Laboratory Results
01/14/25 01/14/25 01/14/25
04:27 11:10 18:00
WBC 6.9
Hgb 12.8 L
Hct 38.1 L
Plt Count 106 L
APTT 72.9 H 73.1 H Pending
Sodium 133 L
Potassium 4.2
Chloride 107
Carbon Dioxide 23
BUN 13
Creatinine 0.6 L
Glucose 157 H
Calcium 7.4 L
Total Bilirubin 0.4
AST 57
ALT 36
Alkaline Phosphatase 64
Vital Signs:
Vital Signs
Temp Pulse Resp BP Pulse Ox
98.8 F 79 24 108/59 94
01/14/25 08:19 01/14/25 11:00 01/14/25 11:00 01/14/25 11:00 01/14/25 11:14
I&O
01/13/25 01/14/25 01/15/25
06:59 06:59 06:59
Intake Total 1304 / 1442 3538.25 / 3917.25 1350 / 1350
Output Total 1630 / 1700 1600 / 1650 450 / 450
Balance -326 / -258 1938.25 / 2267.25 900 / 900
[2025-01-14] MEDS: NSS IV (13:57)
--- NOTE | 2025-01-14 15:26 | W.PN.ANS.POP ---
Anesthesia Post Operative
- Anesthesia Post Op Note
Vital Signs Stable-See Nursing Note: Yes
Airway Patent: Yes
Adequate Pain Control: Yes
Change in Mental Status: No
Current Postoperative Nausea & Vomiting: No
Anesthesia Complications: No
General Anesthetic Recall: No
Unplanned Admission: No
Post Op Hydration Adequate: Yes
--- NOTE | 2025-01-14 16:53 | PTCARENOTE ---
Updated assessment. Follow up with critical care team thru day shift. Vital signs, assessment unchanged and continue to follow lab/ptt trends and vascular checks. Pain well managed, follow up medications via emar. Patient family in and out at
bedside. Supportive cares and teaching ongoing.
[2025-01-14 18:25] LABS: APTT 114.1 Sec (23.4-35.0)
--- NOTE | 2025-01-14 20:33 | PTCARENOTE ---
Pt received at 19:00, significant other at bedside. Ox3. RA, pulse ox mid 90s on RA. Breath sound diminished t/o. SR, radial and L PT & DP pulses palpable, R PT and DP by doppler. B/L feet warm, pink/red, poor cap refill. Pt states that pain is
improved, 2-3/10. +bowel sounds, no BM. Gupta in place, draining yellow urine. Safe environment maintained, call oakes within reach, assisted with repositioning.
[2025-01-15] VITALS (20 sets, daily range): BP systolic 104–164; BP diastolic 55–136; BMI 20.5
[2025-01-15 01:43] LABS: Hematocrit 38.0 % (39.0-52.0); Hemoglobin 12.5 g/dL (13.0-18.0); Mean Corp Hgb Conc. 32.9 g/dL (33.0-37.0); Mean Corpuscular Volume 95.5 fL (80.0-94.0); Nucleated Red Blood Cells % 0 % (-); Platelet Count 107 10^3/uL (130-400); Red Cell Dist. Width 15.9 % (11.5-14.5)
[2025-01-15 01:51] LABS: APTT 78.1 Sec (23.4-35.0)
[2025-01-15 02:09] LABS: ALT (SGPT) 28 U/L (0-50); AST (SGOT) 49 U/L (17-59); Albumin 2.9 g/dl (3.5-5.0); Alkaline Phosphatase 58 U/L (38-126); Blood Urea Nitrogen 12 mg/dl (9-20); Calcium 7.8 mg/dl (8.4-10.2); Carbon Dioxide 25 mmol/L (22-30); Chloride 107 mmol/L (98-107); Estimated Creatinine Clearance 118 ml/min; Glucose 104 mg/dl (70-99); Potassium 3.8 mmol/L (3.5-5.1); Sodium 136 mmol/L (135-145); Total Protein 6.0 g/dl (6.3-8.2); eGFR > 60.00
--- NOTE | 2025-01-15 06:14 | PTCARENOTE ---
Pt significant other sleeping in room. When providing care for pt, it was noted that there were at least 4 beer bottles in the top of the pt room trash can. Security and airport ramp supervisor discussed with pt and S/O. S/O stated that he didn't know that he
could not drink alcohol here. He was informed that this is not acceptable. Pt and S/O denied that the pt was drinking alcohol.
[2025-01-15] MEDS: HEPARIN 25000 UNITS/250 ML IV (08:17)
[2025-01-15] MEDS: TYLENOL 650 MG PO ×2 (08:18→15:32)
[2025-01-15] MEDS: COLACE 100 MG PO ×2 (08:19→20:36)
[2025-01-15] MEDS: PROTONIX 40 MG PO (08:19)
[2025-01-15 08:41] LABS: APTT 41.1 Sec (23.4-35.0)
[2025-01-15] MEDS: HEPARIN 5800 UNITS IV (09:15)
--- NOTE | 2025-01-15 09:27 | W.PN.INTV ---
Today's Communication / Plan
Recommendations
- Outpatient follow-up with pulmonary clinic
- Management Psychologist service will sign off once patient is transferred out of ICU
Assessment
-
69-year-old gentleman presented with acute limb ischemia and emergently taken to the OR on 01/12, s/p Right femoral, popliteal, AT, PT, Peroneal artery thrombectomy with 4 compartment fasciotomy by vascular surgery service, POD #2
- Return to OR 01/13 for distal ischemia, s/p Dorsalis pedis cutdown, embolectomy. POD #2
Continue observation following procedure
Follow neurovascular checks per protocol
Continue heparin infusion per vascular surgery service
Patient saturating 100% on room air, MAP between 99-100, low-grade temperature 99.6 noted
Follow BP monitoring and parameters as set by primary team
No pertinent cardiac history
Monitor on telemetry
Pain control per protocol
RASS goal 0
No prior history of pulmonary disease, smoking hx includes
CXR reviewed:
No prior PFTs for review
Encouraged IS
Diet advancement per protocol
Aspiration precautions
GI prophylaxis: Protonix
Creat at baseline, follow UO
Critical I/Os
Void trials
Replete electrolytes as needed
Low-grade temperature noted, 99.6. WBC count however continues to be normal, no cough no dysuria or other obvious signs of infection.
Will observe off antibiotics for now
Follow temperatures/CBC
Hb and platelets postoperatively stable
DVT prophylaxis: Currently on heparin infusion
Other medical diagnoses:
- Pulmonary nodules. Stable findings on f/u CT Chest in 11/2023. Needs on going surveillance imaging as outpatient. Follows up with Dr. Boucher at [facility]. Resume as out patient.
- H/o HIV. Patient not compliant with HIV medications
- H/o DVT and PE. Patient has more than 1 episodes of VTE events and was supposed to be on Eliquis lifelong but has not been taking any for close to 6-7 months now.
- OCD
- History of smoking with Centrilobular emphysema. Reportedly had been on Trelegy in the past, not taking lately. Addded PRN Albuterol for now.
Critical Care time 38 mins -- The patient is admitted for acute critical illness for the treatment of vital organ failure and/or prevention of further life-threatening conditions. Total care includes time spent in review of history, physical exam,
medications, hemodynamic/ventilator parameters, laboratory data, imaging and discussion with house staff, pharmacy, respiratory therapy, boatswains mate, and nursing.
Data:
CTA Abd/Pelvis 12/2024: 1. There is complete occlusion of the distal right superficial femoral artery without definite reconstitution.
2. The arteries of the left leg appear patent with multifocal stenosis as detailed above. There is likely three-vessel runoff at the level of the ankle.
3. Moderate mixed density atherosclerotic plaque of the visualized abdominal aorta.
4. Prominent rectal stool burden, likely in the setting of constipation.
CT Chest 11/2023: Interval stability as well as some improvement.
Slightly improved mild bronchial wall thickening. Previous left apical parenchymal process has resolved.
Stable findings include irregular nodular opacities in the right upper lobe and apex, and medial left apex. Also stable is small focal subtle opacity in the medial right upper lobe and lobular septated cystic structure centrally situated in the
right midlung zone.
No new mass or consolidation.
ECHO 05/2023: Normal left ventricular size with low normal/mildly reduced LV systolic function
Left ventricular ejection fraction visually estimated 45-50%
Dilated right ventricle with perhaps low normal RV systolic function
Thickened mitral valve leaflets with trace mitral regurgitation
Aortic valve morphology poorly visualized. Sclerotic without stenosis or regurgitation
Estimated pulmonary artery pressure of 22 mmHg, assuming a right atrial
pressure of 3 mmHg.
No pericardial effusion
No prior for comparison
Subjective Dataa
Subjective Data
Date of Service:
Date of Service: January 15, 2025
Subjective:
Patient comfortably sitting in bed in no acute distress.
Review of Systems
Genitourinary: Other (All 14 systems reviewed and negative except as stated above in the history of present illness.)
Objective Data
Data Reviewed
Vital Signs / I&O / Oxygen:
Vital Signs
Temp Pulse Resp BP Pulse Ox
99.6 F 91 17 158/85 95
01/15/25 08:30 01/15/25 08:30 01/15/25 08:30 01/15/25 08:30 01/15/25 08:30
Intake and Output
01/14/25 01/15/25 01/16/25
06:59 06:59 06:59
Intake Total 3538.25 / 3917.25 2934 / 2947 279 / 279
Output Total 1600 / 1650 2180 / 2330 300 / 300
Balance 1938.25 / 2267.25 754 / 617 -21 / -21
SaO2 95
Nasal Cannula flow liters per 2
minute
Physical Exam
General: Comfortable
HEENT: Normocephalic
Cardiovascular: S1-S2
Respiratory: Clear and Wheeze (No obvious wheezing on exam)
GI: Soft
Neurology: Awake and Alert
Skin: Warm
Labs/Micro/Reports
Lab Data
01/15/25 01:30
01/15/25 01:30
Laboratory Results
01/14/25 01/14/25 01/14/25
11:10 17:37 18:05
APTT 73.1 H Cancelled 114.1 H
01/15/25 01/15/25
01:30 08:24
APTT 78.1 H 41.1 H
--- NOTE | 2025-01-15 09:28 | PTCARENOTE ---
Update with Extrusion Manager team. Review events of evening. Follow up assessment trends, follow up vital signs and lab/ptt trends as per vascular. Surgery team at bedside. Updated plan of cares. Clear to transfer to tele(2N/2S), clear to dc ruperto and
consult PT/OT. Continue follow up heparin drip as per vascular orders. Update with patient and family at bedside. 100% breakfast taken this am. Presently appears comfortable sleeping off and on. Call oakes in reach.
--- NOTE | 2025-01-15 12:27 | W.PN.HOSP.TC ---
Today's Communication/Plan
-
Monitor vital signs see plan
PT evaluation
Remove Hickey
Pain control
Continue with heparin drip
Echo
Continue with vascular checks
Cardiology evaluation
CTA
Assessment / Plan
Assessment / Plan
General: No acute distress
HEENT: NormoCephalic, Moist mucous membranes and Atraumatic
Respiratory: Clear
Cardiac: S1/S2 and Regular Rhythm
GI: Soft, Non Tender, Non Distended and Normal Bowel Sounds
Rectal: Deferred by Provider
Musculoskeletal: RLE bandage
Neuro: AO x 3 and Nonfocal/grossly intact
Psych: Anxious
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
s/p Right femoral, popliteal, AT, PT, Peroneal artery thrombectomy with 4 compartment fasciotomy 01/12. cw hep gtt per vascular
s/p Cutdown and exposure of right posterior tibial artery at the ankle. Thrombectomy of the posterior tibial artery for acute ischemia of right lower extremity
Monitor in ICU per vascular
Not compliant to Eliquis and stopped a year ago
History of PE and DVT
Vascular surgery following
Cardiology evaluation
Echo
cw vascular checks
Remove hickey
History of HIV, noncompliant with medications
patient on triumeq daily, non compliant. Can restart with follow up ID consultation
Patient calls his severe OCD that made him stop all his medication
Right bundle branch block
History of pernicious anemia
Elevated LFTs
Continue to monitor
PT eval when okay with vascular
DVT PPX - hep gtt
Code status - Full Code
Anticipated Discharge: > 48 hours
Subjective/Interval History
-
Date of Service: January 15, 2025
has intermittent pain
Objective Data
-
Labs:
Laboratory Results
01/15/25 01/15/25 01/15/25
01:30 08:24 16:00
WBC 5.2
Hgb 12.5 L
Hct 38.0 L
Plt Count 107 L
APTT 78.1 H 41.1 H Pending
Sodium 136
Potassium 3.8
Chloride 107
Carbon Dioxide 25
BUN 12
Creatinine 0.6 L
Glucose 104 H
Calcium 7.8 L
Total Bilirubin 0.5
AST 49
ALT 28
Alkaline Phosphatase 58
Vital Signs:
Vital Signs
Temp Pulse Resp BP Pulse Ox
99.6 F 69 19 120/65 95
01/15/25 08:30 01/15/25 11:00 01/15/25 11:00 01/15/25 10:00 01/15/25 08:30
I&O
01/14/25 01/15/25 01/16/25
06:59 06:59 06:59
Intake Total 3538. / 3917.25 2934 / 2947 551 / 551
Output Total 1600 / 1650 2180 / 2330 400 / 400
Balance 1937.25 / 2266. 754 / 617 151 / 151
--- NOTE | 2025-01-15 13:12 | W.PN.VS ---
Today's Communication / Plan
-
downgrade to tele
Assessment/Plan
-
Assessment: 69-year-old male POD #3 Right femoral, popliteal, at, pt, peroneal artery thrombectomy and 4 compartment fasciotomy. POD #1 Cutdown and exposure of right posterior tibial artery at the ankle. Thrombectomy of the posterior tibial artery
for acute ischemia of right lower extremity
Plan:
Continue heparin infusion for anticoagulation
Continue neurovascular checks
downgrade today
Cardioembolic workup. Recommend cardiology consultation, will obtain echo and CT angio of chest
Subjective Data
-
Date of Service: January 15, 2025
NAEO.
Objective Data
-
Vital Signs
Temp Pulse Resp BP Pulse Ox
99.6 F 78 21 150/76 95
01/15/25 08:30 01/15/25 12:30 01/15/25 12:30 01/15/25 12:00 01/15/25 08:30
Intake and Output
01/14/25 01/15/25 01/16/25
06:59 06:59 06:59
Intake Total 3538.25 / 3917.25 2934 / 2947 687 / 687
Output Total 1600 / 1650 2180 / 2330 500 / 500
Balance 1938.25 / 2267.25 754 / 617 187 / 187
Intake:
Oral fluids 830 / 1070 1500 / 1500 600 / 600
IV fluids (Total) 2708.25 / 2847.25 1199 / 1212
Heparin 270.75 / 284.75 324 / 337
Nss 1,000 ml @ 125 mls/hr IV . 2437.5 / 2562.5 875 / 875
Q8H [facility] Rx#:[id number]
IV piggybacks 200 / 200
Tube feeding
Feeding tube flush amount
Output:
Urine, Gupta 1600 / 1650 2180 / 2330 500 / 500
Lab Results
01/15/25 01:30
01/15/25 01:30
Calcium 7.8 mg/dl (8.4-10.2) L 01/15/25 01:30
Phosphorus 4.5 mg/dl (2.5-4.5) 01/13/25 04:32
Magnesium 1.9 mg/dl (1.6-2.3) 01/13/25 04:32
Total Bilirubin 0.5 mg/dl (0.2-1.3) 01/15/25 01:30
Direct Bilirubin 0.3 mg/dl (0.0-0.4) 01/13/25 04:32
AST 49 U/L (17-59) 01/15/25 01:30
ALT 28 U/L (0-50) 01/15/25 01:30
Alkaline Phosphatase 58 U/L (38-126) 01/15/25 01:30
Total Protein 6.0 g/dl (6.3-8.2) L 01/15/25 01:30
Albumin 2.9 g/dl (3.5-5.0) L 01/15/25 01:30
Physical Exam
-
RLE ischemic changes to forefoot with goot AT signal
[2025-01-15] MEDS: ROXICODONE 5 MG PO (16:33)
[2025-01-15 16:52] LABS: APTT 144.3 Sec (23.4-35.0)
--- NOTE | 2025-01-15 17:40 | PTCARENOTE ---
Updated plan of cares with hospitalist team, vascular team and funeral director/embalmer. Downgraded to tele (2N/S) await bed. Follow up assessment and plan of cares. PT/OT working with patient today.Alonso aguila'd Continue to reinforce meds, heparin
protocol/vascular. Doppler signals on right foot unchanged. Continue to provide teaching and follow up support.
--- NOTE | 2025-01-15 21:53 | PTCARENOTE ---
Received pt resting in bed, AAOx3, without complaints. Pain well controlled. SR with BBB on tele. Vitals stable. On RA. Tolerating low cholesterol diet. Voided in urinal kennedi urine. R LE with NAZARIO wrap in place - neurovascular checks ongoing Q4.
Heparin gtt at 1400units/hr. PTT due 0000.
Report given to FARSHAD Ackerman on [facility]. Pt. transferred to [facility] room 2131 with belongings.
--- NOTE | 2025-01-15 23:50 | PTCARENOTE ---
01/15: Pt transferred to from icu. AAOx3. Pt heart monitor applied, nsr. partner and patient oriented to unit. callbell within reach
[2025-01-16] VITALS (7 sets, daily range): BP systolic 108–144; BP diastolic 61–81; PULSE 82; O2SAT 94; BMI 20.8
[2025-01-16] MEDS: ANESTHETIC LOZENGE 1 LOZENGE PO ×2 (00:17→09:08)
[2025-01-16 00:31] LABS: APTT 101.4 Sec (23.4-35.0)
[2025-01-16] MEDS: HEPARIN 25000 UNITS/250 ML IV ×2 (01:20→23:14)
[2025-01-16 05:13] LABS: Hematocrit 38.6 % (39.0-52.0); Hemoglobin 12.8 g/dL (13.0-18.0); Mean Corp Hgb Conc. 33.2 g/dL (33.0-37.0); Mean Corpuscular Volume 94.8 fL (80.0-94.0); Nucleated Red Blood Cells % 0 % (-); Platelet Count 131 10^3/uL (130-400); Red Cell Dist. Width 15.8 % (11.5-14.5)
[2025-01-16] MEDS: TYLENOL 650 MG PO ×2 (05:15→09:57)
[2025-01-16 05:18] LABS: APTT 45.0 Sec (23.4-35.0)
[2025-01-16 05:35] LABS: ALT (SGPT) 29 U/L (0-50); AST (SGOT) 54 U/L (17-59); Albumin 3.1 g/dl (3.5-5.0); Alkaline Phosphatase 59 U/L (38-126); Blood Urea Nitrogen 9 mg/dl (9-20); Calcium 8.2 mg/dl (8.4-10.2); Carbon Dioxide 27 mmol/L (22-30); Chloride 106 mmol/L (98-107); Estimated Creatinine Clearance 117 ml/min; Glucose 97 mg/dl (70-99); Potassium 4.0 mmol/L (3.5-5.1); Sodium 136 mmol/L (135-145); Total Protein 6.5 g/dl (6.3-8.2); eGFR > 60.00
[2025-01-16] MEDS: HEPARIN 5800 UNITS IV ×2 (05:38→20:24)
--- NOTE | 2025-01-16 06:04 | PTCARENOTE ---
01/16: pt ptt resulted at 45. pt given bolus 5800units and gtt set to 1700units/hr per protocol. TEAM CDL DRIVER notified and recheck labs at 10:00.
--- NOTE | 2025-01-16 07:53 | W.PN.HOSP.TC ---
Today's Communication/Plan
-
see plan
Assessment / Plan
Assessment / Plan
Gen: NAD, AAOx3.
Eyes: EOMI, PERRLA, no scleral icterus.
Neck: supple.
CV: RRR, +S1/S2, no m/r/g.
Resp: CTAB, no rales, wheezes, or rhonchi.
Abd: +BS, soft, NT, ND
Skin: No rashes.
Neuro: CN 2-12 intact, non-focal.
Psych: Normal mood and affect.
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
-s/p 01/12/25 Right femoral, popliteal, AT, PT, Peroneal artery thrombectomy with 4 compartment fasciotomy
-s/p 01/13/25 Cutdown and exposure of right posterior tibial artery at the ankle. Thrombectomy of the posterior tibial artery for acute ischemia of right lower extremity.
-cont hep gtt per vascular
-check echo with concern of embolic etiology of occlusion of distal SFA
-vascular/cards following
Other problems:
HIV, noncompliant with Triumeq, outpt ID follow up
RBBB
h/o pernicious anemia
Elevated LFTs, resolved
FULL/heparin gtt
Anticipated Discharge: 24 - 48 hours
Subjective/Interval History
-
Date of Service: January 16, 2025
No new complaints. Denies chest pain, shortness of breath.
Objective Data
-
Labs:
Laboratory Results
01/16/25 01/16/25 01/16/25
00:11 05:01 06:00
WBC 3.5 L
Hgb 12.8 L
Hct 38.6 L
Plt Count 131 D
APTT 101.4 H 45.0 H Cancelled
Sodium 136
Potassium 4.0
Chloride 106
Carbon Dioxide 27
BUN 9
Creatinine 0.6 L
Glucose 97
Calcium 8.2 L
Total Bilirubin 0.7
AST 54
ALT 29
Alkaline Phosphatase 59
01/16/25
10:00
WBC
Hgb
Hct
Plt Count
APTT Pending
Sodium
Potassium
Chloride
Carbon Dioxide
BUN
Creatinine
Glucose
Calcium
Total Bilirubin
AST
ALT
Alkaline Phosphatase
Vital Signs:
Vital Signs
Temp Pulse Resp BP Pulse Ox
99.5 F 73 18 137/80 96
01/16/25 03:34 01/16/25 03:34 01/16/25 03:34 01/16/25 03:34 01/16/25 03:34
I&O
01/15/25 01/16/25 01/17/25
06:59 06:59 06:59
Intake Total 2934 / 2947 1607 / 1607
Output Total 2180 / 2330 1500 / 1500
Balance 754 / 617 107 / 107
[2025-01-16] MEDS: COLACE 100 MG PO ×2 (09:03→20:22)
[2025-01-16] MEDS: PROTONIX 40 MG PO (09:03)
[2025-01-16] MEDS: DILAUDID 0.5 MG IV (10:00)
[2025-01-16 10:31] LABS: APTT 141.6 Sec (23.4-35.0)
--- NOTE | 2025-01-16 11:00 | W.PN.VS ---
Today's Communication / Plan
-
Plan reviewed with attending Dr. Barak Gupta III
Assessment/Plan
-
Assessment: 69-year-old male POD #4 Right femoral, popliteal, at, pt, peroneal artery thrombectomy and 4 compartment fasciotomy. POD #3 Cutdown and exposure of right posterior tibial artery at the ankle. Thrombectomy of the posterior tibial artery
for acute ischemia of right lower extremity
Plan:
Continue heparin infusion for anticoagulation, will consider transition to oral anticoagulation tomorrow
Continue neurovascular checks
Cardioembolic workup pending, appreciate cards recs, echo pending
Dressing changed by this provider, will likely place wound VAC tomorrow to fasciotomy sites
Subjective Data
-
Date of Service: January 16, 2025
Patient seen and examined at bedside, reports improved right foot pain. Denies nausea, vomiting, fever, and chills.
Objective Data
-
Vital Signs
Temp Pulse Resp BP Pulse Ox
97.8 F 85 16 125/77 93
01/16/25 07:05 01/16/25 07:05 01/16/25 07:05 01/16/25 07:05 01/16/25 07:05
Intake and Output
01/15/25 01/16/25 01/17/25
06:59 06:59 06:59
Intake Total 2934 / 2947 1607 / 1607
Output Total 2180 / 2330 1500 / 1500
Balance 754 / 617 107 / 107
Intake:
Oral fluids 1500 / 1500 1400 / 1400
IV fluids (Total) 1199 / 1212 207 / 207
Heparin 324 / 337 207 / 207
Nss 1,000 ml @ 125 mls/hr IV . 875 / 875
Q8H [facility] Rx#:[id number]
IV piggybacks 200 / 200
Tube feeding
Feeding tube flush amount
Output:
Urine, Gupta 2180 / 2330 850 / 850
Urine, Voided 650 / 650
Lab Results
01/16/25 05:01
01/16/25 05:01
Calcium 8.2 mg/dl (8.4-10.2) L 01/16/25 05:01
Phosphorus 4.5 mg/dl (2.5-4.5) 01/13/25 04:32
Magnesium 1.9 mg/dl (1.6-2.3) 01/13/25 04:32
Total Bilirubin 0.7 mg/dl (0.2-1.3) 01/16/25 05:01
Direct Bilirubin 0.3 mg/dl (0.0-0.4) 01/13/25 04:32
AST 54 U/L (17-59) 01/16/25 05:01
ALT 29 U/L (0-50) 01/16/25 05:01
Alkaline Phosphatase 59 U/L (38-126) 01/16/25 05:01
Total Protein 6.5 g/dl (6.3-8.2) 01/16/25 05:01
Albumin 3.1 g/dl (3.5-5.0) L 01/16/25 05:01
Physical Exam
-
No apparent distress, resting bed comfortably
No tachycardia
No dyspnea
ABD, nontender, nondistended
Right foot remains with maroonish discoloration at digits, decreased motor function at right foot digits can dorsiflex and plantarflex at ankle, cap refill roughly 5 seconds, AT Doppler signal
--- NOTE | 2025-01-16 11:09 | CM ---
Reviewed the chart notes and spoke with the patient at the bedside. Discussed discharge plans with the patient. Patient is not interested in going to a SNF nor having VN come into the house. CM continues to be available to patient/family and is
monitoring medical plan for needs at discharge.
Plan: Discharge most likely to home when medically stable.
[2025-01-16 18:38] LABS: APTT > 200 Sec (23.4-35.0)
[2025-01-16 19:52] LABS: APTT 61.0 Sec (23.4-35.0)
[2025-01-17] MEDS: TYLENOL 650 MG PO ×2 (02:26→21:09)
[2025-01-17 03:00] VITALS: BP 130/79
[2025-01-17 03:26] LABS: APTT > 200.0 Sec (23.4-35.0)
--- NOTE | 2025-01-17 04:46 | DOWNTIME ---
There was a [employer] Downtime on 01/17/2025 from 0100 to 01/17/2025 at 0220. Downtime documentation of patient's care, including medication administrations, has been reconciled in the electronic record per guidelines. Refer to the
patient's paper chart under the miscellaneous tab to see printed paper medication records and downtime forms.
[2025-01-17 06:00] VITALS: BMI 20.3
[2025-01-17 07:00] VITALS: BP 131/76
--- NOTE | 2025-01-17 07:51 | W.PN.HOSP.TC ---
Today's Communication/Plan
-
see plan
Assessment / Plan
Assessment / Plan
Gen: NAD, Awake and alert, appears chronically ill
Eyes: EOMI, PERRLA, no scleral icterus.
Neck: supple.
CV: remains RRR, +S1/S2, no m/r/g.
Resp: CTAB anteriorly, no rales, wheezes, or rhonchi.
Abd: +BS, soft, NT, ND
Skin: No rashes.
Neuro: CN 2-12 intact, non-focal.
Psych: Normal mood and affect.
Echo: EF 50-55%. Normal regional wall motion. Mild concentric LVH. Mild TR. The IVC is of normal size and demonstrates normal respiratory variation. Interatrial septum is intact with no evidence of shunting by color flow
Doppler. No intracardiac mass or thrombus formation seen. Compared to echocardiogram June 08, 2023, previously LVEF was estimated at 45 to 50% and now appears normal. The right ventricle was previously noted to
be mildly dilated and now appears normal in size as well as function. Otherwise no significant change.
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
-s/p 01/12/25 Right femoral, popliteal, AT, PT, Peroneal artery thrombectomy with 4 compartment fasciotomy
-s/p 01/13/25 Cutdown and exposure of right posterior tibial artery at the ankle. Thrombectomy of the posterior tibial artery for acute ischemia of right lower extremity.
-cont hep gtt per vascular
-echo (TTE) above, c/s cards for INGE
-vascular following
-likely transition to oral anticoagulation today
-Likely wound VAC placement today
-case discussed with vascular and cardiology
Other problems:
HIV, noncompliant with Triumeq, outpt ID follow up
RBBB
h/o pernicious anemia
Elevated LFTs, resolved
FULL/heparin gtt
Anticipated Discharge: 24 - 48 hours
Subjective/Interval History
-
Date of Service: January 17, 2025
Objective Data
-
Labs:
Laboratory Results
01/16/25 01/17/25 01/17/25
19:28 02:38 11:30
APTT 61.0 H > 200.0 H* Pending
Vital Signs:
Vital Signs
Temp Pulse Resp BP Pulse Ox
98.8 F 83 16 130/79 92
01/17/25 03:00 01/17/25 03:00 01/17/25 03:00 01/17/25 03:00 01/17/25 03:00
I&O
01/16/25 01/17/25 01/18/25
06:59 06:59 06:59
Intake Total 1607 / 1607 1260 / 1260
Output Total 1500 / 1500 2400 / 2400
Balance 107 / 107 -1140 / -1140
[2025-01-17 08:11] LABS: Hematocrit 36.7 % (39.0-52.0); Hemoglobin 12.2 g/dL (13.0-18.0); Mean Corp Hgb Conc. 33.2 g/dL (33.0-37.0); Mean Corpuscular Volume 95.6 fL (80.0-94.0); Platelet Count 143 10^3/uL (130-400); Red Cell Dist. Width 15.6 % (11.5-14.5)
--- NOTE | 2025-01-17 08:12 | W.PN.VS ---
Addendum entered and electronically signed by Barak Gupta III, MD 01/17/25 18:01:
This patient was seen and examined in collaboration with AZIZA Ervin. I agree with the history and physical exam as well as the assessment and plan.
Patient's right foot is warm
Has a right dorsalis pedis Doppler signal on exam today which is encouraging
Will plan for VAC placement
Cardioembolic workup
Continue anticoagulation
Call with questions or concerns
Signed:
Barak Gupta III, MD
Vascular Surgery
[facility]
Original Note:
Today's Communication / Plan
-
Patient seen and examined at bedside with Dr. Barak Gupta III, below plan reviewed with attending.
Assessment/Plan
-
Assessment: 69-year-old male POD #5 Right femoral, popliteal, at, pt, peroneal artery thrombectomy and 4 compartment fasciotomy. POD #4 Cutdown and exposure of right posterior tibial artery at the ankle. Thrombectomy of the posterior tibial artery
for acute ischemia of right lower extremity
Plan:
From a vascular surgical perspective can transition to oral anticoagulation
Continue neurovascular checks
Cardioembolic workup pending, appreciate cards recs
Will change fasciotomy dressing to VAC dressing today, this can be changed weekly
Wound care consult placed to continue VAC management
Follow-up placed in discharge instructions
We will sign off please call with questions or concerns
Subjective Data
-
Date of Service: January 17, 2025
Patient seen and examined at bedside, continues to report improvement in right foot pain. Patient would not describe pain as a mild discomfort, well-managed with current pain medication regimen. He endorses improvement to motor function of right
lower extremity foot digits.
Objective Data
-
Vital Signs
Temp Pulse Resp BP Pulse Ox
98.8 F 83 16 130/79 92
01/17/25 03:00 01/17/25 03:00 01/17/25 03:00 01/17/25 03:00 01/17/25 03:00
Intake and Output
01/16/25 01/17/25 01/18/25
06:59 06:59 06:59
Intake Total 1607 / 1607 1260 / 1260
Output Total 1500 / 1500 2400 / 2400
Balance 107 / 107 -1140 / -1140
Intake:
Oral fluids 1400 / 1400 1260 / 1260
IV fluids (Total) 207 / 207
Heparin 207 / 207
Output:
Urine, Gupta 850 / 850
Urine, Voided 650 / 650 2400 / 2400
Lab Results
01/17/25 08:02
Calcium 8.2 mg/dl (8.4-10.2) L 01/16/25 05:01
Phosphorus 4.5 mg/dl (2.5-4.5) 01/13/25 04:32
Magnesium 1.9 mg/dl (1.6-2.3) 01/13/25 04:32
Total Bilirubin 0.7 mg/dl (0.2-1.3) 01/16/25 05:01
Direct Bilirubin 0.3 mg/dl (0.0-0.4) 01/13/25 04:32
AST 54 U/L (17-59) 01/16/25 05:01
ALT 29 U/L (0-50) 01/16/25 05:01
Alkaline Phosphatase 59 U/L (38-126) 01/16/25 05:01
Total Protein 6.5 g/dl (6.3-8.2) 01/16/25 05:01
Albumin 3.1 g/dl (3.5-5.0) L 01/16/25 05:01
Physical Exam
-
No apparent distress, resting in bed comfortably
No tachycardia
No dyspnea
ABD, nontender, nondistended
Right foot with improved discoloration at digits, motor function at right foot digits scantly improved patient continues to have full dorsiflex and plantarflex at ankle, cap refill roughly 3 seconds, AT and now DP Doppler signal present
[2025-01-17] MEDS: PROTONIX 40 MG PO (08:56)
[2025-01-17] MEDS: COLACE 100 MG PO ×2 (08:56→20:47)
[2025-01-17 09:02] LABS: Blood Urea Nitrogen 9 mg/dl (9-20); Calcium 8.1 mg/dl (8.4-10.2); Carbon Dioxide 28 mmol/L (22-30); Chloride 106 mmol/L (98-107); Estimated Creatinine Clearance 116 ml/min; Glucose 92 mg/dl (70-99); Potassium 4.0 mmol/L (3.5-5.1); Sodium 137 mmol/L (135-145); eGFR > 60.00
[2025-01-17] MEDS: DILAUDID 0.5 MG IV (09:15)
--- NOTE | 2025-01-17 10:00 | WOUNDNOTE ---
JAYJAY RN NOTE: Patient admitted for femoral artery occlusion. S/P fem-pop peroneal artery thrombectomy with fasciotomy. PMH: OCD, HIV +, smoker, COPD, chronic venous insufficiency and DVT. Lives with friend. Assisted ANGELIQUE Jeong with y connector to
vac dressing. Shobha already applied the peel and place weekly vac dressing to medial and lateral R leg fasciotomy sites. Wound measurements obtained. Will update 3M with current vac machine and may need home vac. Per CM patient refusing VN and SNF
at this time. Teaching done with patient regarding importance of VN to manage care of wound vac weekly. Patient did say he was told that. Patient turned self to side, sacrum and heels intact. Sacral silicone foam in use. Applied foams to heels and
offloaded with pillow. Air chair cushion under R leg to offload heel. R medial ankle with sutures and dry dressing reinforced with ABD and Esther to secure. Patient on Accumax bed, pressure ulcer prevention measures reviewed with patient, states he
understands. Confirmed with vascular that wound care team can change next wound vac dressing in a week if still here. Nurse Bjorn updated.
--- NOTE | 2025-01-17 10:13 | W.PN.UPDATE ---
Update Note
Progress Note Update
Placed wound vac dressings x2 on RLE fasciotomy wounds at bedside. Pt with pain on gauze dressing removal, received PRN dilaudid prior to wound vac placement. Wounds appear clean, muscle intact, no purulent drainage. Medial wound dimensions: 17 x 1
x 3.5 cm; lateral wound dimensions: 15 x 3 x 0.5 cm.
--- NOTE | 2025-01-17 10:54 | CON.CAR ---
Addendum entered and electronically signed by Patrice Grace MD 01/17/25 13:13:
I saw and examined the patient.
The Handbook Writer's note was reviewed and I agree with the note.
Comment: Briefly, 69-year-old man past medical history of DVT/PE, COPD, HIV who presented with right lower extremity pain found to have acute limb ischemia for which she underwent embolectomy and fasciotomy with vascular surgery on 01/12/2025.
Cardiology is consulted for assessment of cardioembolic source of stroke.
Reviewed atrial arrhythmia as a potential cardioembolic sources of stroke with patient and spouse at bedside
He was in normal sinus rhythm earlier this admission and has now been taken off of telemetry.
Explained that we could arrange for long-term outpatient security monitor including implantable monitor to assess for atrial fibrillation/flutter however this would likely not blade changer as he is already recommended to be on oral
anticoagulation. Patient tells me he would prefer a more conservative approach and would not be interested in long-term monitoring.
Transthoracic echocardiogram here with normal LV function and no significant valve disease
INGE would be of low yield given if we were to find a PFO/ASD with his age and risk factors (RoPE score) he would not likely be a candidate for closure
Would not recommend any further cardiac testing at this time, we will sign off, please recall as needed
Original Note:
Consultation
Consultation Request
Date/Time Consultation Performed: 01/17/25
Requesting Provider: Dr. Mart
Performing Provider: Katie Chacon PA-C for Dr. Grace
Reason for Consultation: RLE ischemia, concern for cardioembolic source
Medical History
-
Chief Complaint: RLE pain
History of Present Illness:
Patient is a 69-year-old male with past medical history of bilateral DVT and PE, HIV positive, COPD, long COVID, OCD/depression, chronic venous insufficiency who presented 01/12/25 due to right lower extremity pain starting 01/11. He then noted some
discoloration to his foot. He was supposed to be on Eliquis as well as Trelegy, however he states he had an issue with his insurance company and the pharmacy covering the medicines which and stopped them altogether as he 'could not cope'. He
underwent right femoral, popliteal, AT, PT, peroneal artery thrombectomy and 4 compartment fasciotomy as well as cutdown and exposure of right posterior tibial artery with thrombectomy for acute ischemia this admission. He currently has wound VAC
in place. Cardiology consulted to assess for cardioembolic etiology of clot. He denies cardiac issues, has never seen a news camera operator. He denies chest pain, shortness of breath, palpitations. His telemetry was discontinued yesterday. He is
presently on IV heparin. He reports a family history of clotting issues, however no official diagnoses that he knows of.
PMH:
History of B/L DVT/PE
HIV positive
COPD
long Covid
OCD/depression
chronic venous insufficiency with venous stasis wounds
tobacco use
Daily ETOH use with former abuse
Past Medical History
Past Medical History: Other (in HPI)
Social History
Tobacco: Smoker (1 ppd)
Alcohol: Daily (2 glasses of wine)
Personal: Partner
Living: With Family
Employment: Retired
Family History
Family History: Other (CVAs, CHF, clotting issues)
Allergies / Home Medications
Allergy/AdvReac Type Severity Reaction Status Date / Time
No Known Allergies Allergy Unverified 06/05/23 15:37
�Medication �Instructions �Recorded �Confirmed �Type
Trelegy Ellipta 1 inh inhalation DAILY 01/12/25 01/12/25 History
Lung/Breathing Issues
Triumeq 1 tab PO DAILY HIV 01/12/25 01/12/25 History
apixaban 5 mg tablet (Eliquis) 5 mg PO DAILY Blood Clot 01/12/25 01/12/25 History
Prevention/Tx
Review of Systems
-
History Source: Patient and Family
All other systems: Negative unless noted
Physical Exam
Vital Signs
Temp Pulse Resp BP Pulse Ox
97.4 F 70 16 131/76 95
01/17/25 07:00 01/17/25 07:00 01/17/25 07:00 01/17/25 07:00 01/17/25 07:00
Lab Results
01/17/25 08:02
01/17/25 08:02
Physical Exam
General: No Apparent Distress and Comfortable
HEENT: Normocephalic, Anicteric and Moist Mucous Membranes
Respiratory: Clear and Non Labored Respirations
Cardiac: S1/S2 and Regular Rhythm
GI: Soft, Non Tender, Non Distended and Normal Bowel Sounds
Musculoskeletal: No Clubbing, No Cyanosis and Edema (trace of RLE, wound vac in place)
Skin: Warm and Dry
Neuro: AO x 3
Impression / Plan
-
Primary Feed Manager: none prior to admission
Assessment:
Presentation with RLE pain
RLE limb ischemia s/p right femoral, popliteal, AT, PT, peroneal artery thrombectomy and 4 compartment fasciotomy 01/12/25 as well as cutdown and exposure of right posterior tibial artery with thrombectomy 01/13/25
History of B/L DVT/PE
HIV positive
COPD
Long Covid
OCD/depression
chronic venous insufficiency with venous stasis wounds
tobacco use
Daily ETOH use with former abuse
ECHO 01/16/2025: EF 50 to 55%, mild concentric LVH, mild TR, interatrial septum intact with no evidence of shunt, no intracardiac mass or thrombus seen
Plan:
- Patient presented with right lower extremity pain and discoloration and found to have right SFA occlusion status post multiple vascular procedures this admission. He currently has wound VAC in place. He has history of DVT and PE in the past as
well as family history of clotting issues and ongoing tobacco use, and had stopped his outpatient anticoagulation several months ago due to issues with the insurance company and pharmacy.
- Cardiology consulted due to concern for cardioembolic etiology of right limb ischemia
- He is presently on IV heparin
- Telemetry was discontinued yesterday. He denies lightheadedness, dizziness, palpitations. He denies history of cardiac arrhythmias, and reportedly has been in sinus rhythm since admission
- Could consider for outpatient cardiac monitoring for completeness, however treatment if he has underlying atrial arrhythmia is the same�to continue oral anticoagulation
- Encouraged compliance with medications
- Encouraged smoking cessation
- would recommend OP hypercoagulable work up. he reports multiple family members with history of clotting
- he tells me his mental illness significantly affects his health. he reports meds made him feel worse. follow up with PCP
- discussed with partner at bedside
Data Reviewed
-
EKG: Tracing Personally Visualized and interpreted
Medical Tests (Nuc Med, Echo etc): Report Reviewed by me
Labs: Labs Reviewed by me
Old Records: Reviewed
[2025-01-17 11:32] LABS: APTT 110.9 Sec (23.4-35.0)
--- NOTE | 2025-01-17 14:51 | CM ---
Reviewed the chart notes and spoke with the patient and his partner at the bedside. Patient had wound vac placed today. Discussed options of home with VN services vs SNF/rehab placement. Provided list of area SNFs to patient to review. CM
continues to be available to patient/family and is monitoring medical plan for needs at discharge.
Plan: Discharge plans will depend on patient's preference. Home with VN vs SNF. If SNF, no precert required.
[2025-01-17 15:00] VITALS: BP 122/68
[2025-01-17] MEDS: HEPARIN 25000 UNITS/250 ML IV (17:08)
[2025-01-17 17:25] LABS: APTT 108.9 Sec (23.4-35.0)
[2025-01-17] MEDS: ANESTHETIC LOZENGE 1 LOZENGE PO (21:09)
[2025-01-17 23:44] VITALS: BP 125/74
[2025-01-18 05:44] VITALS: BMI 20.1
[2025-01-18 07:23] LABS: Hematocrit 36.7 % (39.0-52.0); Hemoglobin 12.0 g/dL (13.0-18.0); Mean Corp Hgb Conc. 32.7 g/dL (33.0-37.0); Mean Corpuscular Volume 94.8 fL (80.0-94.0); Platelet Count 152 10^3/uL (130-400); Red Cell Dist. Width 15.4 % (11.5-14.5)
[2025-01-18 07:32] LABS: APTT 99.6 Sec (23.4-35.0)
[2025-01-18 07:45] VITALS: BP 147/80
--- NOTE | 2025-01-18 08:11 | W.PN.HOSP.TC ---
Today's Communication/Plan
-
see plan
Assessment / Plan
Assessment / Plan
Gen: Remains NAD, Awake and alert, appears chronically ill
Eyes: EOMI, PERRLA, no scleral icterus.
Neck: supple.
CV: Continues to remain RRR, +S1/S2, no m/r/g.
Resp: Remains CTAB anteriorly, no rales, wheezes, or rhonchi.
Abd: +BS, soft, NT, ND
Skin: No rashes.
Neuro: CN 2-12 intact, non-focal.
Psych: Normal mood and affect.
Echo: EF 50-55%. Normal regional wall motion. Mild concentric LVH. Mild TR. The IVC is of normal size and demonstrates normal respiratory variation. Interatrial septum is intact with no evidence of shunting by color flow
Doppler. No intracardiac mass or thrombus formation seen. Compared to echocardiogram June 08, 2023, previously LVEF was estimated at 45 to 50% and now appears normal. The right ventricle was previously noted to
be mildly dilated and now appears normal in size as well as function. Otherwise no significant change.
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
-was noncompliant with Eliquis, stopped 1 year [employer] (h/o DVT/PE)
-s/p 01/12/25 Right femoral, popliteal, AT, PT, Peroneal artery thrombectomy with 4 compartment fasciotomy
-s/p 01/13/25 Cutdown and exposure of right posterior tibial artery at the ankle. Thrombectomy of the posterior tibial artery for acute ischemia of right lower extremity.
-echo (TTE) above
-appreciate cardiology, no indication for further cardiac testing at this time. Patient could have a potline monitor to determine if he has atrial fibrillation (not seen in the hospital) but this would not waste/materials exchange specialist as the patient is
already going to be on anticoagulation and the patient would prefer a more conservative approach.
-vascular following
-RLE fasciotomy wound VAC placement 01/17/25
-cont hep gtt per vascular. Will discuss transition to Eliquis today.
Other problems:
HIV, noncompliant with Triumeq, outpt ID follow up
RBBB
h/o pernicious anemia
Elevated LFTs, resolved
FULL/heparin gtt
Anticipated Discharge: Within 24 hours
Subjective/Interval History
-
Date of Service: January 18, 2025
Patient complains of phlegm in his throat. Expresses anxiety about leaving the hospital.
Objective Data
-
Labs:
Laboratory Results
01/18/25
06:34
WBC 2.5 L
Hgb 12.0 L
Hct 36.7 L
Plt Count 152
APTT 99.6 H
Sodium Pending
Potassium Pending
Chloride Pending
Carbon Dioxide Pending
BUN Pending
Creatinine Pending
Glucose Pending
Calcium Pending
Vital Signs:
Vital Signs
Temp Pulse Resp BP Pulse Ox
98.3 F 71 16 147/80 95
01/18/25 07:45 01/18/25 07:45 01/18/25 07:45 01/18/25 07:45 01/18/25 07:45
I&O
01/17/25 01/18/25 01/19/25
06:59 06:59 06:59
Intake Total 1260 / 1260 1530 / 1530
Output Total 2400 / 2400 1295 / 1295
Balance -1140 / -1140 235 / 235
[2025-01-18 08:45] LABS: Blood Urea Nitrogen 9 mg/dl (9-20); Calcium 8.2 mg/dl (8.4-10.2); Carbon Dioxide 27 mmol/L (22-30); Chloride 107 mmol/L (98-107); Estimated Creatinine Clearance 99 ml/min; Glucose 86 mg/dl (70-99); Potassium 4.0 mmol/L (3.5-5.1); Sodium 137 mmol/L (135-145); eGFR > 60.00
[2025-01-18] MEDS: PROTONIX 40 MG PO (09:02)
[2025-01-18] MEDS: COLACE 100 MG PO ×2 (09:02→19:50)
--- NOTE | 2025-01-18 11:09 | W.PA-PDMP ---
[place]-PDMP
-
Checked the [place]- Prescription Drug Monitoring Program website, no red flags identified; safe to proceed with prescription.
[2025-01-18] MEDS: ELIQUIS 10 MG PO ×2 (11:34→19:50)
[2025-01-18] MEDS: DILAUDID 0.5 MG IV (12:59)
[2025-01-18 13:15] VITALS: BP 143/79; PULSE 70; O2SAT 95
--- NOTE | 2025-01-18 15:27 | CM ---
Reviewed the chart notes and spoke with the patient at the bedside. Patient expressed desire to return home, but realizes it is not a functional plan. Permission received to send referrals to SNFs in the patient's area. Referrals with [facility] sent
via [facility]. CM continues to be available to patient/family and is monitoring medical plan for needs at discharge.
Plan: Discharge to SNF/rehab once bed secured. No precert required.
[2025-01-18 15:50] VITALS: BP 140/71
--- NOTE | 2025-01-18 15:50 | WOUNDNOTE ---
WOC RN Note: Faxed Ready home vac with large [place] [employer] [place] Vac dressing request to Ashley Carlson from [facility] noting that this business writer is not sure if patient is going home vs SNF when discharged.
--- NOTE | 2025-01-18 16:05 | WOUNDNOTE ---
WOC RN note: Franck Ross re: Patient wound need 2 large [address] [address] vac dressing kits per week and a post acute vac at SNF.
[2025-01-18 23:08] VITALS: BP 126/67
[2025-01-18] MEDS: TYLENOL 650 MG PO (23:13)
[2025-01-19] MEDS: ROXICODONE 5 MG PO ×2 (05:06→13:35)
[2025-01-19 06:00] VITALS: BMI 19.8
[2025-01-19 07:00] VITALS: BP 149/78
[2025-01-19 07:24] LABS: Hematocrit 38.0 % (39.0-52.0); Hemoglobin 12.3 g/dL (13.0-18.0); Mean Corp Hgb Conc. 32.4 g/dL (33.0-37.0); Mean Corpuscular Volume 97.2 fL (80.0-94.0); Platelet Count 155 10^3/uL (130-400); Red Cell Dist. Width 15.6 % (11.5-14.5)
[2025-01-19] MEDS: PROTONIX 40 MG PO (07:48)
[2025-01-19] MEDS: COLACE 100 MG PO ×2 (07:49→21:11)
[2025-01-19] MEDS: ELIQUIS 10 MG PO ×2 (07:49→21:11)
[2025-01-19] MEDS: DULCOLAX 10 MG RECTAL (07:49)
[2025-01-19 08:09] LABS: Blood Urea Nitrogen 10 mg/dl (9-20); Calcium 8.4 mg/dl (8.4-10.2); Carbon Dioxide 30 mmol/L (22-30); Chloride 106 mmol/L (98-107); Estimated Creatinine Clearance 97 ml/min; Glucose 93 mg/dl (70-99); Potassium 4.1 mmol/L (3.5-5.1); Sodium 137 mmol/L (135-145); eGFR > 60.00
--- NOTE | 2025-01-19 08:48 | W.PN.HOSP.TC ---
Today's Communication/Plan
-
see bold
Assessment / Plan
Assessment / Plan
Gen: Continues to remain NAD, Awake and alert, appears chronically ill
Eyes: EOMI, PERRLA, no scleral icterus.
Neck: supple.
CV: RRR, +S1/S2, no m/r/g.
Resp: Continues to remain CTAB anteriorly, no rales, wheezes, or rhonchi.
Abd: +BS, soft, NT, ND
Skin: No rashes.
Neuro: CN 2-12 intact, non-focal.
Psych: Normal mood and affect.
Echo: EF 50-55%. Normal regional wall motion. Mild concentric LVH. Mild TR. The IVC is of normal size and demonstrates normal respiratory variation. Interatrial septum is intact with no evidence of shunting by color flow
Doppler. No intracardiac mass or thrombus formation seen. Compared to echocardiogram June 08, 2023, previously LVEF was estimated at 45 to 50% and now appears normal. The right ventricle was previously noted to
be mildly dilated and now appears normal in size as well as function. Otherwise no significant change.
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
-s/p 01/12/25 Right femoral, popliteal, AT, PT, Peroneal artery thrombectomy with 4 compartment fasciotomy
-s/p 01/13/25 Cutdown and exposure of right posterior tibial artery at the ankle. Thrombectomy of the posterior tibial artery for acute ischemia of right lower extremity.
-echo (TTE) above
-appreciate cardiology, no indication for further cardiac testing at this time. Patient could have a hall monitor to determine if he has atrial fibrillation (not seen in the hospital) but this would not filter changer as the patient is
already going to be on anticoagulation and the patient would prefer a more conservative approach.
-vascular following
-RLE fasciotomy wound VAC placement 01/17/25
-was on hep gtt, now transitioned to Eliquis (01/18/25AM)
Other problems:
HIV, noncompliant with Triumeq, outpt ID follow up
RBBB
h/o pernicious anemia
Elevated LFTs, resolved
FULL/Eliquis
Medically cleared for discharge. Case management aware.
Anticipated Discharge: Today
Subjective/Interval History
-
Date of Service: January 19, 2025
Patient complains of constipation.
Objective Data
-
Labs:
Laboratory Results
01/19/25
06:36
WBC 3.1 L
Hgb 12.3 L
Hct 38.0 L
Plt Count 155
Sodium 137
Potassium 4.1
Chloride 106
Carbon Dioxide 30
BUN 10
Creatinine 0.7
Glucose 93
Calcium 8.4
Vital Signs:
Vital Signs
Temp Pulse Resp BP Pulse Ox
98.1 F 83 16 126/67 94
01/18/25 23:08 01/18/25 23:08 01/18/25 23:08 01/18/25 23:08 01/18/25 23:08
I&O
01/18/25 01/19/25 01/20/25
06:59 06:59 06:59
Intake Total 1530 / 1530 1320 / 1320
Output Total 1295 / 1295 1969 / 1969
Balance 235 / 235 -650 / -650
[2025-01-19] MEDS: CITROMA 300 ML PO (10:04)
--- NOTE | 2025-01-19 12:28 | CM ---
Addendum entered by Neeta Ross RN 01/19/25 13:42:
Voice message left for [facility] and Alejandra who accepted patient in [facility] to see if able to accept today.
Original Note:
Reviewed the chart notes and spoke with the patient and his partner at bedside. Referrals made earlier declined patient. Provide additional Medicare.gov compare list for review. CM continues to be available to patient/family and is monitoring
medical plan for needs at discharge.
Plan: Discharge to SNF once bed secured. No precert required.
[2025-01-19 15:02] VITALS: BP 95/51
[2025-01-19] MEDS: TYLENOL 650 MG PO ×2 (15:29→21:26)
[2025-01-19 16:09] VITALS: BP 99/51
--- NOTE | 2025-01-19 16:56 | PTCARENOTE ---
Patient with bp of 95/51 and temp of 99.6. Patient states he feels dizzy and weak. Patient did have a large bm after being constipated for multiple days. MD made aware. Will CTM for now. RLE neurovascular check is good with + pulse
[2025-01-19 17:50] VITALS: BP 103/60
[2025-01-19 23:22] VITALS: BP 118/72
[2025-01-20] MEDS: ROXICODONE 5 MG PO ×2 (00:11→04:58)
[2025-01-20 05:05] VITALS: BMI 19.5
[2025-01-20 07:22] LABS: Hematocrit 39.5 % (39.0-52.0); Hemoglobin 13.0 g/dL (13.0-18.0); Mean Corp Hgb Conc. 32.9 g/dL (33.0-37.0); Mean Corpuscular Volume 95.2 fL (80.0-94.0); Platelet Count 180 10^3/uL (130-400); Red Cell Dist. Width 15.7 % (11.5-14.5)
[2025-01-20 07:42] VITALS: BP 119/65
[2025-01-20 07:52] LABS: Blood Urea Nitrogen 16 mg/dl (9-20); Calcium 8.4 mg/dl (8.4-10.2); Carbon Dioxide 29 mmol/L (22-30); Chloride 104 mmol/L (98-107); Estimated Creatinine Clearance 111 ml/min; Glucose 106 mg/dl (70-99); Potassium 4.3 mmol/L (3.5-5.1); Sodium 137 mmol/L (135-145); eGFR > 60.00
--- NOTE | 2025-01-20 08:12 | W.PN.HOSP.TC ---
Today's Communication/Plan
-
d/c
Assessment / Plan
Assessment / Plan
Gen: NAD, Awake and alert, appears chronically ill
Eyes: remains EOMI, PERRLA, no scleral icterus.
Neck: supple.
CV: RRR, +S1/S2, no m/r/g.
Resp: CTAB anteriorly, no rales, wheezes, or rhonchi.
Abd: remains +BS, soft, NT, ND
Skin: No rashes.
Neuro: remains CN 2-12 intact, non-focal.
Psych: Normal mood and affect.
Echo: EF 50-55%. Normal regional wall motion. Mild concentric LVH. Mild TR. The IVC is of normal size and demonstrates normal respiratory variation. Interatrial septum is intact with no evidence of shunting by color flow
Doppler. No intracardiac mass or thrombus formation seen. Compared to echocardiogram June 08, 2023, previously LVEF was estimated at 45 to 50% and now appears normal. The right ventricle was previously noted to
be mildly dilated and now appears normal in size as well as function. Otherwise no significant change.
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
-was noncompliant with Eliquis, stopped 1 year [employer] (h/o DVT/PE)
-s/p 01/12/25 Right femoral, popliteal, AT, PT, Peroneal artery thrombectomy with 4 compartment fasciotomy
-s/p 01/13/25 Cutdown and exposure of right posterior tibial artery at the ankle. Thrombectomy of the posterior tibial artery for acute ischemia of right lower extremity.
-echo (TTE) above
-appreciate cardiology, no indication for further cardiac testing at this time. Patient could have a potline monitor to determine if he has atrial fibrillation (not seen in the hospital) but this would not change booth attendant as the patient is
already going to be on anticoagulation and the patient would prefer a more conservative approach.
-vascular following
-RLE fasciotomy wound VAC placement 01/17/25
-was on hep gtt, now transitioned to Eliquis (01/18/25)
Other problems:
HIV, noncompliant with Triumeq, outpt ID follow up
RBBB
h/o pernicious anemia
Elevated LFTs, resolved
FULL/Eliquis
Remains medically cleared for discharge since 01/19/25. Case management aware.
Anticipated Discharge: Today
Subjective/Interval History
-
Date of Service: January 20, 2025
Pt c/o loose stool after Mag citrate yesterday.
Objective Data
-
Labs:
Laboratory Results
01/20/25
06:56
WBC 5.3
Hgb 13.0
Hct 39.5
Plt Count 180
Sodium 137
Potassium 4.3
Chloride 104
Carbon Dioxide 29
BUN 16
Creatinine 0.6 L
Glucose 106 H
Calcium 8.4
Vital Signs:
Vital Signs
Temp Pulse Resp BP Pulse Ox
99.4 F 77 16 119/65 93
01/20/25 07:42 01/20/25 07:42 01/20/25 07:42 01/20/25 07:42 01/20/25 07:42
I&O
01/19/25 01/20/25 01/21/25
06:59 06:59 06:59
Intake Total 1320 / 1320 1020 / 1020
Output Total 1969 / 1969 1025 / 1025
Balance -650 / -650 -5 / -5
[2025-01-20] MEDS: ELIQUIS 10 MG PO ×2 (09:11→20:23)
[2025-01-20] MEDS: PROTONIX 40 MG PO (09:11)
[2025-01-20] MEDS: COLACE 100 MG PO ×2 (09:11→20:24)
--- NOTE | 2025-01-20 15:39 | CM ---
Reviewed the chart notes and spoke with the patient and his partner at the bedside. IMM reviewed. Messages left for [facility] ([phone] and on urgent placement line [phone]). Messages placed in [facility].
Awaiting decision. CM continues to be available to patient/family and is monitoring medical plan for needs at discharge.
Plan: Discharge to SNF/rehab once bed secured.
[2025-01-20 15:50] VITALS: BP 112/62
--- NOTE | 2025-01-20 15:51 | PTCARENOTE ---
Patient tolerating sitting in chair with legs elevated. Patient has no c/o pain unless right leg is moved. Patient has +pp with doppler, right is weak and slow. Toes are reddened. right ankle dressing changed. SO at bedside sleeping. Patient c/o
intermittent gas pains.
[2025-01-20 15:57] VITALS: BP 117/72; PULSE 92; O2SAT 95
[2025-01-20 23:40] VITALS: BP 114/63
[2025-01-21 05:11] VITALS: BMI 19.6
[2025-01-21 07:03] LABS: Hematocrit 36.8 % (39.0-52.0); Hemoglobin 12.2 g/dL (13.0-18.0); Mean Corp Hgb Conc. 33.2 g/dL (33.0-37.0); Mean Corpuscular Volume 95.6 fL (80.0-94.0); Platelet Count 188 10^3/uL (130-400); Red Cell Dist. Width 15.1 % (11.5-14.5)
[2025-01-21 07:27] LABS: Blood Urea Nitrogen 15 mg/dl (9-20); Calcium 8.0 mg/dl (8.4-10.2); Carbon Dioxide 27 mmol/L (22-30); Chloride 103 mmol/L (98-107); Estimated Creatinine Clearance 96 ml/min; Glucose 92 mg/dl (70-99); Potassium 4.6 mmol/L (3.5-5.1); Sodium 135 mmol/L (135-145); eGFR > 60.00
[2025-01-21 07:40] VITALS: BP 114/68
[2025-01-21] MEDS: COLACE 100 MG PO ×2 (08:49→19:57)
[2025-01-21] MEDS: PROTONIX 40 MG PO (08:50)
[2025-01-21] MEDS: ELIQUIS 10 MG PO ×2 (08:50→19:57)
--- NOTE | 2025-01-21 09:10 | W.PN.HOSP.TC ---
Today's Communication/Plan
-
d/c
Assessment / Plan
Assessment / Plan
Gen: NAD, Awake and alert, appears chronically ill
Eyes: continues to remain EOMI, PERRLA, no scleral icterus.
Neck: supple.
CV: RRR, +S1/S2, no m/r/g.
Resp: CTAB anteriorly, no rales, wheezes, or rhonchi.
Abd: continues to remain +BS, soft, NT, ND
Skin: No rashes.
Neuro: continues to remain CN 2-12 intact, non-focal.
Psych: Normal mood and affect.
Echo: EF 50-55%. Normal regional wall motion. Mild concentric LVH. Mild TR. The IVC is of normal size and demonstrates normal respiratory variation. Interatrial septum is intact with no evidence of shunting by color flow
Doppler. No intracardiac mass or thrombus formation seen. Compared to echocardiogram June 08, 2023, previously LVEF was estimated at 45 to 50% and now appears normal. The right ventricle was previously noted to
be mildly dilated and now appears normal in size as well as function. Otherwise no significant change.
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
-was noncompliant with Eliquis, stopped 1 year PIE[employer] (h/o DVT/PE)
-s/p 01/12/25 Right femoral, popliteal, AT, PT, Peroneal artery thrombectomy with 4 compartment fasciotomy
-s/p 01/13/25 Cutdown and exposure of right posterior tibial artery at the ankle. Thrombectomy of the posterior tibial artery for acute ischemia of right lower extremity.
-echo (TTE) above
-appreciate cardiology, no indication for further cardiac testing at this time. Patient could have a fbi sharpshooter to determine if he has atrial fibrillation (not seen in the hospital) but this would not address change clerk as the patient is
already going to be on anticoagulation and the patient would prefer a more conservative approach.
-vascular following
-RLE fasciotomy wound VAC placement 01/17/25
-was on hep gtt, now transitioned to Eliquis (01/18/25)
Other problems:
HIV, noncompliant with Triumeq, outpt ID follow up
RBBB
h/o pernicious anemia
Elevated LFTs, resolved
FULL/Eliquis
Remains medically cleared for discharge since 01/19/25. Case management aware.
Anticipated Discharge: Today
Subjective/Interval History
-
Date of Service: January 21, 2025
No new complaints.
Objective Data
-
Labs:
Laboratory Results
01/21/25
06:30
WBC 5.4
Hgb 12.2 L
Hct 36.8 L
Plt Count 188
Sodium 135
Potassium 4.6
Chloride 103
Carbon Dioxide 27
BUN 15
Creatinine 0.7
Glucose 92
Calcium 8.0 L
Vital Signs:
Vital Signs
Temp Pulse Resp BP Pulse Ox
98.4 F 71 16 114/68 94
01/21/25 07:40 01/21/25 07:40 01/21/25 07:40 01/21/25 07:40 01/21/25 07:40
I&O
01/20/25 01/21/25 01/22/25
06:59 06:59 06:59
Intake Total 1020 / 1020 1200 / 1200
Output Total 1025 / 1025 800 / 800 125 / 125
Balance -5 / -5 400 / 400 -125 / -125
--- NOTE | 2025-01-21 11:40 | CM ---
ANDREW called [facility] and spoke with Jose Ramon/Cande. She explains that she was not expecting this pt over the weekend. ANDREW asked that she please review and call CM back because he is med stable for dc. Cande will review clinical and call CM back
with determination of SNF approval.
[facility] SN[facility] ph # [phone]
--- NOTE | 2025-01-21 14:04 | CM ---
Cande at [facility] in [place] reviewed and accepted pt. Can offer a SNF bed today.
Met with pt and sig other at bedside. Both in agreement of dc plan.
[2025-01-21 15:45] VITALS: BP 106/67
--- NOTE | 2025-01-21 16:31 | CM ---
Addendum entered by Ai Niño 01/21/25 16:35:
Per CM leadership, hospital to cover cost of transport. Covering CM tomorrow to schedule trip.
Original Note:
CM met with pt at bedside and sig other to explain that per Holly/Acute Care pt will need to pay out of pocket for transport, total is $605 and they do not offer a payment plan. Told reason being that the SNF is located >30 miles from hospital so
medicare will not cover.
Pt and sig other state unable to afford.
Per Holly trip will be on will call.
CM updated Cande/admissions at SNF her cell # [phone] that covering CM will follow up with her tomorrow. Also gave her CM office #.
[2025-01-21 23:07] VITALS: BP 113/70
[2025-01-22 07:15] LABS: Hematocrit 36.7 % (39.0-52.0); Hemoglobin 12.2 g/dL (13.0-18.0); Mean Corp Hgb Conc. 33.2 g/dL (33.0-37.0); Mean Corpuscular Volume 95.6 fL (80.0-94.0); Platelet Count 208 10^3/uL (130-400); Red Cell Dist. Width 14.8 % (11.5-14.5)
[2025-01-22 07:40] VITALS: BP 128/68
[2025-01-22 07:51] LABS: Blood Urea Nitrogen 15 mg/dl (9-20); Calcium 8.1 mg/dl (8.4-10.2); Carbon Dioxide 28 mmol/L (22-30); Chloride 101 mmol/L (98-107); Estimated Creatinine Clearance 96 ml/min; Glucose 87 mg/dl (70-99); Potassium 4.6 mmol/L (3.5-5.1); Sodium 134 mmol/L (135-145); eGFR > 60.00
--- NOTE | 2025-01-22 08:04 | W.PN.HOSP.TC ---
Today's Communication/Plan
-
d/c
Assessment / Plan
Assessment / Plan
Gen: NAD, Awake and alert, appears chronically ill
Eyes: EOMI, PERRLA, no scleral icterus.
Neck: supple.
CV: RRR, +S1/S2, no m/r/g.
Resp: CTAB anteriorly, no rales, wheezes, or rhonchi.
Abd: +BS, soft, NT, ND
Skin: No rashes.
Neuro: CN 2-12 intact, non-focal.
Psych: Normal mood and affect.
Echo: EF 50-55%. Normal regional wall motion. Mild concentric LVH. Mild TR. The IVC is of normal size and demonstrates normal respiratory variation. Interatrial septum is intact with no evidence of shunting by color flow
Doppler. No intracardiac mass or thrombus formation seen. Compared to echocardiogram June 08, 2023, previously LVEF was estimated at 45 to 50% and now appears normal. The right ventricle was previously noted to
be mildly dilated and now appears normal in size as well as function. Otherwise no significant change.
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
-s/p 01/12/25 Right femoral, popliteal, AT, PT, Peroneal artery thrombectomy with 4 compartment fasciotomy
-s/p 01/13/25 Cutdown and exposure of right posterior tibial artery at the ankle. Thrombectomy of the posterior tibial artery for acute ischemia of right lower extremity.
-echo (TTE) above
-appreciate cardiology, no indication for further cardiac testing at this time. 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
already going to be on anticoagulation and the patient would prefer a more conservative approach.
-vascular following
-RLE fasciotomy wound VAC placement 01/17/25
-was on hep gtt, now transitioned to Eliquis (01/18/25)
Other problems:
HIV, noncompliant with Triumeq, outpt ID follow up
RBBB
h/o pernicious anemia
Elevated LFTs, resolved
FULL/Eliquis
Remains medically cleared for discharge since 01/19/25. Case management aware.
Anticipated Discharge: Today
Subjective/Interval History
-
Date of Service: January 22, 2025
No new complaints.
Objective Data
-
Labs:
Laboratory Results
01/22/25
06:12
WBC 4.4 L
Hgb 12.2 L
Hct 36.7 L
Plt Count 208
Sodium 134 L
Potassium 4.6
Chloride 101
Carbon Dioxide 28
BUN 15
Creatinine 0.7
Glucose 87
Calcium 8.1 L
Vital Signs:
Vital Signs
Temp Pulse Resp BP Pulse Ox
99.5 F 77 17 113/70 98
01/21/25 15:45 01/21/25 23:07 01/21/25 23:07 01/21/25 23:07 01/21/25 23:07
I&O
01/21/25 01/22/25 01/23/25
06:59 06:59 06:59
Intake Total 1200 / 1200 960 / 1440 480 / 480
Output Total 800 / 800 650 / 950 300 / 300
Balance 400 / 400 310 / 490 180 / 180
[2025-01-22] MEDS: COLACE 100 MG PO (08:39)
[2025-01-22] MEDS: PROTONIX 40 MG PO (08:39)
[2025-01-22] MEDS: ELIQUIS 10 MG PO (08:39)
--- NOTE | 2025-01-22 08:47 | CM ---
Addendum entered by Ai Cox 01/22/25 13:02:
DC to [facility] and Transport confirmed for 1245noon today. MD, Facility and RN aware. RN to update pt/Partner.
Addendum entered by Ai Cox 01/22/25 09:31:
Call placed to Cande/SW @ [facility] @ [phone]. Pt's room is waiting for him, arrival time is up to us. CM requested transport from Acute Care; was given [phone]. CM will updated sustainable communities designer and pt/.
Original Note:
CM reviewed chart. Call placed to Cande/ at SNF @ [phone] to discuss pts dc further. Pending return call at this time.
CM will continue to follow.
[2025-01-22 11:14] VITALS: BP 115/65
--- NOTE | 2025-01-22 12:59 | W.DCSUMMARY ---
Discharge Summary
Discharge Data
Date of Admission: 01/12/25
Date of Discharge: 01/22/25
-
Pending Results: No
Hospital Course
Primary diagnoses:
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
Medical noncompliance
Secondary diagnoses:
h/o deep vein thrombosis
h/o pulmonary embolism
HIV, noncompliant antiretrovirals
Right bundle branch block
h/o pernicious anemia
Elevated LFTs
Consultants:
Cardiology
Critical care
Vascular surgery
Imaging:
CT A/P with contrast:
1. There is complete occlusion of the distal right superficial femoral artery without definite reconstitution.
2. The arteries of the left leg appear patent with multifocal stenosis as detailed above. There is likely three-vessel runoff at the level of the ankle.
3. Moderate mixed density atherosclerotic plaque of the visualized abdominal aorta.
4. Prominent rectal stool burden, likely in the setting of constipation.
Echo: EF 50-55%. Normal regional wall motion. Mild concentric LVH. Mild TR. The IVC is of normal size and demonstrates normal respiratory variation. Interatrial septum is intact with no evidence of shunting by color flow
Doppler. No intracardiac mass or thrombus formation seen. Compared to echocardiogram June 08, 2023, previously LVEF was estimated at 45 to 50% and now appears normal. The right ventricle was previously noted to
be mildly dilated and now appears normal in size as well as function. Otherwise no significant change.
Hospital course: 69-year-old male who presented with a chief complaint of right lower extremity pain as outlined in the H&P done on admission. 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 CT abdomen pelvis above showing
complete occlusion of the distal right superficial femoral artery. The patient underwent 01/12/25 Right femoral, popliteal, AT, PT, Peroneal artery thrombectomy with 4 compartment fasciotomy followed by 01/13/25 Cutdown and exposure of right
posterior tibial artery at the ankle. Thrombectomy of the posterior tibial artery for acute ischemia of right lower extremity. He then underwent RLE fasciotomy with wound VAC placement 01/17/25. Patient was initially on a heparin drip and then
transition to Eliquis. He was discharged in medically stable condition.
Discharge Plan
-
Patient Disposition: Shelter/SNF
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
POSTOPERATIVE DIAGNOSIS: Ischemic right lower extremity.
PROCEDURES:
01/12/25- Right femoral, popliteal, anterior tibial artery, peroneal, posterior tibial artery thrombectomies. Four-compartment fasciotomy.
01/13/25- Cutdown and exposure of right posterior tibial artery at the ankle. Thrombectomy of the posterior tibial artery
Condition: Good
Diet: Regular
Activity: No strenuous activity
Driving Restrictions: Not until seen by your Dr
Bathing Restrictions: OK to Shower
Blood Work: BMP and CBC in 1 week, prescription from PCP
Activity Restrictions/Additional Instructions:
Wound Care Instructions
PEEL AND PLACE Wound Vac Therapy to Right Calf with Black Foam. Change Weekly and PRN If Unable to Obtain A Seal. Low Intensity, Continuous at 125 mmHg.
LEG ELEVATION WHEN SITTING
Follow up WITH VASCULAR.
Can place nonadherent pad over right ankle sutures, then gauze pad, secure with paper tape. Change daily or as needed if soiled.
Stand Alone Forms: Vascular Surg Discharge Instr
Referrals:
Mj Boucher MD [Active, Pulmonary Medicine] - in six weeks
Ketan Iqbal MD [Family Provider, Family Practice]
Joan Hernandez CRNP [Specified Professional Personl, Vascular Surgery] - 02/02/25 11:00 am
Prescriptions:
New
docusate sodium 100 mg Capsule
100 mg PO BID Qty: 60 0RF
Rx Instructions:
Can buy [id number]
oxycodone 5 mg Tablet
5 mg PO Q4HPRN PRN (Reason: moderate pain) Qty: 14 0RF
Eliquis 5 mg Tablet
10 mg PO BID Qty: 1 0RF
Rx Instructions:
through 01/24/25PM
pantoprazole 40 mg Tablet,Delayed Release (Dr/Ec)
40 mg PO DAILY Qty: 0 0RF
Eliquis 5 mg tablet
5 mg PO BID Qty: 1 0RF
Rx Instructions:
start 01/25/25
Continued
Trelegy Ellipta
1 inh inhalation DAILY
Rx Instructions:
He stopped all meds 1 year ago
Triumeq
1 tab PO DAILY
Rx Instructions:
stopped all meds since may
Discontinued
Eliquis 5 mg Tablet
5 mg PO DAILY
Rx Instructions:
stopped a year ago
Discharge Orders:
Discharge Patient (As Directed); Ordered 01/21/25
Ordered By: Uriel Graham
Discharge Date and Time
Print Language: THAI
--- NOTE | 2025-01-23 07:27 | WOUNDNOTE ---
WOC RN note: Notified [employer] via [employer] portal of stop rental vac ulta pump bill date as of 01/22/25 and rental vac ulta picker and sorter load and unload (work order # [id number]).
== END 2025-01-22 13:09 | DRG 253 ==
LOC: 2 NORTH 21:35
PROVIDERS: Internal Medicine; Surgery Vascular Surgery; ADMITTING PHYSICIAN Internal Medicine; ATTENDING PHYSICIAN Internal Medicine; CONSULT PHYSICIAN Internal Medicine; CONSULT PHYSICIAN Internal Medicine Cardiovascular Disease; CONSULT PHYSICIAN Surgery; EMERGENCY PHYSICIAN Student in an Organized Health Care Education/Training Program; FAMILY PHYSICIAN Family Medicine
PROC: 04CP0ZZ Extirpation of Matter from Right Anterior Tibial Artery, Open Approach (ICD-10-PCS; 2025-01-12)
PROC: 04CM0ZZ Extirpation of Matter from Right Popliteal Artery, Open Approach (ICD-10-PCS; 2025-01-12)
PROC: 04CT0ZZ Extirpation of Matter from Right Peroneal Artery, Open Approach (ICD-10-PCS; 2025-01-12)
PROC: 0KNS0ZZ Release Right Lower Leg Muscle, Open Approach (ICD-10-PCS; 2025-01-12)
PROC: 04CK0ZZ Extirpation of Matter from Right Femoral Artery, Open Approach (ICD-10-PCS; 2025-01-12)
PROC: 04CR0ZZ Extirpation of Matter from Right Posterior Tibial Artery, Open Approach (ICD-10-PCS; 2025-01-13)
DX: I70.221 Atherosclerosis of native arteries of extremities with rest pain, right leg (principal); I74.3 Embolism and thrombosis of arteries of the lower extremities; F42.9 Obsessive-compulsive disorder, unspecified; Z21 Asymptomatic human immunodeficiency virus [HIV] infection status; K59.00 Constipation, unspecified; F17.210 Nicotine dependence, cigarettes, uncomplicated; I87.2 Venous insufficiency (chronic) (peripheral); J43.2 Centrilobular emphysema; F32.A Depression, unspecified; I45.10 Unspecified right bundle-branch block; Z79.899 Other long term (current) drug therapy; Z86.711 Personal history of pulmonary embolism; Z91.148 Patient's other noncompliance with medication regimen for other reason; Z86.718 Personal history of other venous thrombosis and embolism
CPT/HCPCS: 27602; 34203; 71045; 71275; 75635; 80048; 80053; 82248; 82962; 83036; 83735; 84100; 85025; 85027; 85610; 85730; 86850; 86900; 86901; 88304; 93005; 93306; 96374; 97110; 97116; 97163; 97167; 97530; 97535; 99291; 99406; C1757; J2997; Q9967

== ENCOUNTER → 2025-03-28 08:59 | Outpatient (REF) | payer MEDICARE, SELFPAY | LOC: RAD 08:59 | PROVIDERS: ATTENDING PHYSICIAN Registered Nurse; FAMILY PHYSICIAN Family Medicine | DX: I74.3 Embolism and thrombosis of arteries of the lower extremities (principal) | CPT/HCPCS: 93922 ==

== ENCOUNTER → 2025-04-06 15:10 | Outpatient (REF) | payer MEDICARE, SELFPAY | LOC: RAD 15:10 | PROVIDERS: ATTENDING PHYSICIAN Registered Nurse; FAMILY PHYSICIAN Family Medicine | DX: I74.3 Embolism and thrombosis of arteries of the lower extremities (principal) | CPT/HCPCS: 75635; Q9967 ==